=== PATIENT | male | born 1940 | race Hispanic/Latino ===

== ENCOUNTER 2016-11-05 10:07 | Emergency (ER) | payer MEDICARE ==
[2016-11-05] MEDS ORDERED: HYDROcodone/Acetaminophen 10/325 mg Tablet ONE (10:49)
[2016-11-05] MEDS ORDERED: Diazepam 5 MG TAB ONE (10:49)
[2016-11-05] MEDS ORDERED: Gabapentin 100 MG CAP ONE (10:50)
[2016-11-05] MEDS ORDERED: Dexamethasone 4 mg/ml Vial ONE (10:50)
--- NOTE | 2016-11-05 11:02 | ERRECORD ---
[facility] EMERGENCY RECORD HPI BACK (10:47 ABUS) CHIEF COMPLAINT: Denies deformity, Denies injury, Denies numbness, Patient presents for evaluation of pain, to the right lower back. HISTORIAN: History provided by patient, History provided by patient's spouse, 76 yr old M with PMH of HTN, DM, disk herniation, chronic LBP, and BPH who comes in with acute on chronic LBP with intermittent muscle spasms abd worsening pain after working on a frozen pipe outside. Since then he has tried to treat at home. He can ambulate but needs some assistance. Denies any loss of bowel or bladder function, constant numbness, fever. MECHANISM OF INJURY: Work related. LOCATION: Symptoms are localized to the back, sacral region, right lumbar region. QUALITY: Pain is dull in nature, described as aching. SEVERITY: Currently symptoms are moderate. TIME COURSE: Gradual onset of symptoms, 2-3 days. ASSOCIATED WITH: No associated abdominal pain, No associated bladder incontinence, No associated bowel incontinence, No associated dysuria, No associated fever, No associated inability to ambulate, No associated motor weakness, No associated numbness, No associated problems with urination, Associated with sciatica, on the left, Associated with tingling, on the right, intermittent. EXACERBATED BY: Patient's condition exacerbated by movement. RELIEVED BY: Patient's condition relieved by nothing. RISK FACTORS: Risk factors reviewed. ROS (10:50 ABUS) CONSTITUTIONAL: Negative constitutional review of systems, Historian denies chills, denies fever. ENT: Negative ears, nose, throat review of systems, Historian denies rhinorrhea, denies sore throat. CARDIOVASCULAR: Negative cardiovascular review of systems, Historian denies chest pain, denies palpitations. RESPIRATORY: Negative respiratory review of systems, Historian denies cough, denies shortness of breath. GI: Negative gastrointestinal review of systems, Historian denies abdominal pain, denies constipation, denies diarrhea, denies nausea, denies vomiting. MUSCULOSKELETAL: Historian reports arthralgias, reports back pain, denies deformity, denies fall, reports injury, denies joint stiffness, denies joint swelling, denies neck pain, reports spasms. SKIN: Negative skin review of systems, Historian denies rash, denies skin changes. NEUROLOGIC: Negative neurologic review of systems, Historian denies headache. PAST MEDICAL HISTORY (10:38 SFRE) &a-1R&a+25V*p+0X*[id number]*c202B*c15G*c2P*p-0X&a-25V&a+1R Name: Jovani Sinha : 1940 M76 MedRec: [id number] AcctNum: [id number] Prepared: Rony Nov 05, 2016 11:25 by Interface Page 1 of 5 pMD [facility] EMERGENCY RECORD MEDICAL HISTORY: Flu vaccine up to date, Tetanus immunization up to date, Pneumococcal vaccine up to date, Past medical history includes cardiac history, Notes: LYMPHOMA,, Past medical history includes history of diabetes, Past medical history includes history of hypertension, /Past medical history includes. VERIFIED 06/07/16. no changes 10/12/16. MALE SURGICAL HISTORY: Surgical history of coronary artery bypass graft surgery, one vessel, Surgical history of orthopedic surgery, LEFT ELBOW, Patient has no surgical history, 2 LITERS OF FLUID REMOVED FROM RIGHT ABD-PARACENTESIS JANUARY 24, Patient's surgical history is not relevant to the management of the case. 3 1/2 Liters drained from left abdomen. - 05/31/2013. VERIFIED. 12-12-14.VERIFIED 06/07/16. no changes 10/12/16. PSYCHIATRIC HISTORY: Notes: VERIFIED 06/07/16, No previous psychiatric history. VERIFIED. 10-01-14. SOCIAL HISTORY: Patient drinks socially, Patient denies drug use, Patient currently uses tobacco, smokes cigarettes, daily, Patient smokes 1 pack per day, Patient drinks socially, twice a month, Alcohol history notes: PT ADMITS TO [employer] IN [employer] [facility] [employer], Patient denies drug use, Patient currently uses tobacco, smokes cigarettes, daily, Patient smokes 1 pack per day, Lives at home, with family, Patient drinks socially, every week, Patient currently uses tobacco, Patient currently uses tobacco, Patient smokes cigarettes, Tobacco history notes: socially, Patient drinks socially, Patient denies drug use, , Patient denies drug use. 05.31.2013. PACK DAILY. VERIFIED 12-12-14. KNOWN ALLERGIES 3 HEART MEDS, UNK NAMES (Unconfirmed) No Known Allergies (Unconfirmed) No Known Drug Allergies CURRENT MEDICATIONS metFORMIN: TABLET : Strength - 1,000 mg : ORAL Patient Dose: 1000 mg Oral 2 times a day. (10:42 SFRE) meTOPROLOL tartrate: TABLET : Strength - 25 mg : ORAL Patient Dose: 2 times a day. (10:42 SFRE) Tylenol-Codeine #3: TABLET : Strength - 300 mg-30 mg : ORAL Patient Dose: As Needed. (10:43 SFRE) aspirin: TABLET : Strength - 325 mg : ORAL Patient Dose: 325 mg Oral once a day. (10:46 SFRE) glipiZIDE: TABLET : Strength - 5 mg : ORAL Patient Dose: 5 mg Oral once a day. (10:46 SFRE) lisinopril: TABLET : Strength - 5 mg : ORAL &a-1R&a+25V*p+0X*[id number]*c202B*c15G*c2P*p-0X&a-25V&a+1R Name: Jovani Sinha : 1940 M76 MedRec: [id number] AcctNum: [id number] Prepared: Rony Nov 05, 2016 11:25 by Interface Page 2 of 5 pMD [facility] EMERGENCY RECORD Patient Dose: Unknown. (10:47 SFRE) atorvastatin: TABLET : Strength - 20 mg : ORAL Patient Dose: Unknown. (10:47 SFRE) VITAL SIGNS (10:20 SFRE) VITAL SIGNS: BP: 155/70, Pulse: 81, Resp: 18, Temp: 96.9 (Tympanic), O2 sat: 97 on Room Air, Time: 11/05/2016 10:20. PHYSICAL EXAM CONSTITUTIONAL: Vital Signs Reviewed, Patient afebrile, Pulse normal, Blood pressure normal, Respiratory rate normal, Patient appears non toxic, Patient appears, in moderate pain distress. (10:50 ABUS) HEAD: Head exam normal, no abrasions, No Lacerations, normocephalic. (10:50 ABUS) NECK: Neck exam normal, Neck exam included findings of normal range of motion, Trachea midline, no meningeal signs, no cervical adenopathy, no tenderness. (10:50 ABUS) RESPIRATORY CHEST: Respiratory and chest exam normal, Respiratory exam included findings of no respiratory distress, Breath sounds clear. (10:50 ABUS) CARDIOVASCULAR: Cardiovascular assessment normal, Cardiovascular exam included findings of heart rate regular rate and rhythm, Heart sounds normal. (10:50 ABUS) ABDOMEN MALE: Abdominal exam included findings of abdomen nontender, Bowel sounds normal, no distension, no mass, no pulsatile masses, no peritoneal signs, no rigidity, no guarding, no rebound, Rovsing's sign absent. (10:50 ABUS) BACK: Back exam normal, Back exam included findings of normal inspection, range of motion normal, no tenderness. (10:50 ABUS) UPPER EXTREMITY: Upper extremity exam included findings of inspection normal, no abrasions, no contusions, no deformity, no lacerations, Range of motion normal, Motor strength normal, Sensation intact, Radial pulse normal, no cyanosis, no clubbing, no edema. (10:51 ABUS) LOWER EXTREMITY: Lower extremity exam included findings of inspection normal, no abrasions, no contusions, no deformity, no lacerations, Motor strength, Limited by pain but 4/5 audra, Sensation intact, Pedal pulse normal, no cyanosis, no clubbing, no edema, no palpable cords. (10:51 ABUS) NEURO: Neuro exam normal, Neuro exam findings include patient oriented to person, place and time, Speech normal, Gait normal. (10:50 ABUS) SKIN: Skin exam normal, Skin exam included findings of skin warm, dry, and normal in color, no rash. (10:50 ABUS) MEDICATION ADMINISTRATION SUMMARY Drug Name: dexamethasone sodium phosphate injection, Dose Ordered: 8 &a-1R&a+25V*p+0X*[id number]*c202B*c15G*c2P*p-0X&a-25V&a+1R Name: Jovani Sinha : 1940 M76 MedRec: [id number] AcctNum: [id number] Prepared: Rony Nov 05, 2016 11:25 by Interface Page 3 of 5 pMD [facility] EMERGENCY RECORD mg, Route: Intramuscular, Status: Given, Time: 10:58 11/05/2016, Drug Name: HYDROcodone-acetaminophen, Dose Ordered: 10/325 tab(s), Route: Oral, Status: Given, Time: 10:57 11/05/2016, Drug Name: diazepam oral, Dose Ordered: 5 mg, Route: Oral, Status: Given, Time: 10:57 11/05/2016, Drug Name: gabapentin, Dose Ordered: 100 mg, Route: Oral, Status: Given, Time: 10:57 11/05/2016, Detailed record available in Medication Service section. DOCTOR NOTES (10:52 ABUS) TEXT: 76 yr old M with PMH of HTN, DM, disk herniation, chronic LBP, and BPH who comes in with acute on chronic LBP with intermittent muscle spasms abd worsening pain after working on a frozen pipe outside. No loss of bowel, or bladder or fever. Exam: Appears in pain and some motor exam is limited due to muscle spasm and pain. Otherwise nothing specific. DDX: Muscle strain, Muscle Spasm, Ligamentous Injury, Contusion, Soft Tissue Injury, Arthritis, Degenerative Joint Disease, Spinal Stenosis, Disk Herniation PLAN: Analgesics, Muscle Relaxants. Final Dispo: Home with follow up and return precautions including close monitoring of his glucose which he uses sliding scale insulin to manage. The plan and need for close monitor of glucose was shared with the patient and his (who is driving) who verbalized understanding and agreement with the plan of care. Level of Complexity / Medical Decision Making: Low. PROBLEM LIST No recorded problems DIAGNOSIS (10:41 ABUS) FINAL: PRIMARY: Low back pain, ADDITIONAL: OTHER MUSCLE SPASM. PRESCRIPTION (10:46 ABUS) Valium oral: TABLET : 5 mg : ORAL : Quantity: 1 Unit: tab(s) Route: ORAL Schedule: every 8 hours PRN Dispense: 6 Unit: tab(s) May substitute. Refills: No Refills . NOTES: No Refills. traMADol: TABLET : 50 mg : ORAL : Quantity: 1 Unit: tab(s) Route: ORAL Schedule: every 6 hours PRN Dispense: 10 Unit: tab(s) May substitute. Refills: No Refills . NOTES: ^s=No Refills No Refills. DISPOSITION PATIENT: Disposition Type: Discharge, Disposition: *Discharge Home, Condition: Good. (11:22 ABUS) &a-1R&a+25V*p+0X*u1045C*c202B*c15G*c2P*p-0X&a-25V&a+1R Name: Jovani Sinha : 1940 M76 MedRec: [id number] AcctNum: [id number] Prepared: Rony Nov 05, 2016 11:25 by Interface Page 4 of 5 pMD [facility] EMERGENCY RECORD Patient left the department. (11:25 SFRE) Arshad: KEVIN=MD Slade, Alexey SFRE=JOSE M Soliman, Abida &a-1R&a+25V*p+0X*[id number]*c202B*c15G*c2P*p-0X&a-25V&a+1R Name: Jovani Sinha : 1940 M76 MedRec: [id number] AcctNum: [id number] Prepared: Rony Nov 05, 2016 11:25 by Interface Page 5 of 5 pMD MTDD
--- NOTE | 2016-11-05 11:07 | PICIS ---
[facility] EMERGENCY RECORD TRIAGE (10:20 SFRE) TRIAGE NOTES: LOW BACK PAIN. (10:20 SFRE) PATIENT: NAME: Jovani Sinha, AGE: 76, GENDER: male, : Fri1940, TIME OF GREET: FriNov 05, 2016 10:08, PREFERRED LANGUAGE: Yakut, ETHNICITY: or , FALL RISK: NO, ECODE BILLING MAP: [facility], SSN: [id number], Zip Code: [address], KG WEIGHT: 80.74, PHONE: , , , PERSON ID: [id number], PCP: MD INIGUEZ IMELDA. (10:20 SFRE) COMPLAINT: LOWER BACK PAIN. (10:20 SFRE) ADMISSION: URGENCY: 4 Non Urgent, ADMISSION SOURCE: Home, TRANSPORT: Walk-in, BED: ED -05. (10:20 SFRE) ASSESSMENT: Symptoms began 3 days ago. (10:38 SFRE) PAIN: Patient complains of pain described as, aching, on a scale 0-10 patient rates pain as 8, Location LOW BACK PAIN, MOSTLY TO RIGHT HIP AND LOWN R LEG, Pain is constant, Aggravating factors:, Pain exacerbated by movement, No efforts tried to relieve symptoms. (10:38 SFRE) IMMUNIZATIONS: Flu vaccine up to date, Pneumococcal vaccine up to date. (10:38 SFRE) SIRS SCORING: Heart Rate 55-109 (0), Temp range 96.8-101.1 (0), respiratory rate 12-24 (0), Mental Status altered: no (0). (10:38 SFRE) TRIAGE SCREENING: Patient denies suicidal ideation, Patient denies presence of domestic violence. (10:38 SFRE) PROVIDERS: TRIAGE NURSE: Abida Soliman RN. (10:20 SFRE) VITAL SIGNS: BP 155/70, Pulse 81, Resp 18, Temp 96.9, (Tympanic), O2 Sat 97, on Room Air, Time 11/05/2016 10:20. (10:20 SFRE) PREVIOUS VISIT ALLERGIES: No Known Drug Allergies. (10:20 SFRE) No Known Drug Allergies. (10:38 SFRE) KNOWN ALLERGIES 3 HEART MEDS, UNK NAMES (Unconfirmed) No Known Allergies (Unconfirmed) No Known Drug Allergies CURRENT MEDICATIONS metFORMIN: TABLET : Strength - 1,000 mg : ORAL Patient Dose: 1000 mg Oral 2 times a day. (10:42 SFRE) meTOPROLOL tartrate: TABLET : Strength - 25 mg : ORAL Patient Dose: 2 times a day. (10:42 SFRE) Tylenol-Codeine #3: TABLET : Strength - 300 mg-30 mg : ORAL Patient Dose: As Needed. (10:43 SFRE) aspirin: TABLET : Strength - 325 mg : ORAL Patient Dose: 325 mg Oral once a day. (10:46 SFRE) &a-1R&a+25V*p+0X*j5144N*c202B*c15G*c2P*p-0X&a-25V&a+1R Name: Jovani Sinha : 1940 M76 MedRec: [id number] AcctNum: [id number] Prepared: Rony Nov 05, 2016 11:30 by Interface Page 1 of 7 pMD [facility] EMERGENCY RECORD glipiZIDE: TABLET : Strength - 5 mg : ORAL Patient Dose: 5 mg Oral once a day. (10:46 SFRE) lisinopril: TABLET : Strength - 5 mg : ORAL Patient Dose: Unknown. (10:47 SFRE) atorvastatin: TABLET : Strength - 20 mg : ORAL Patient Dose: Unknown. (10:47 SFRE) VITAL SIGNS (10:20 SFRE) VITAL SIGNS: BP: 155/70, Pulse: 81, Resp: 18, Temp: 96.9 (Tympanic), O2 sat: 97 on Room Air, Time: 11/05/2016 10:20. NURSING ASSESSMENT: BACK (10:25 SFRE) CONSTITUTIONAL: Patient arrives, via hospital wheelchair, History obtained from patient, Patient appears comfortable, Patient cooperative, Patient alert, Oriented to person, place and time, Skin warm, Skin dry, Skin normal in color, Mucous membranes pink, Mucous membranes moist, Patient is well-groomed, Patient complains of BACK PAIN. PAIN: aching pain, sharp pain, shooting pain, to the lower back, Pain radiates, to the right leg, Onset of pain COUPLE DAYS AGO, constant, on a scale 0-10 patient rates pain as 8, Pain exacerbated by, ambulation, Nothing has been tried to alleviate the pain. SAFETY: Side rails up, Cart/Stretcher in lowest position, Family at bedside, Call light within reach, Hospital ID band on. NURSING PROCEDURE: DISCHARGE NOTE (11:16 SFRE) DISCHARGE: Patient discharged to home, in a wheelchair, family driving, accompanied by //partner, Summary of Care printed/ provided, Patient requested and was provided an electronic copy of Discharge Instructions, Discharge instructions given to patient, Simple or moderate discharge teaching performed, by JOSE M ZAMARRIPA, F/U WITH PCP. RX DIRECTED. RETURN TO ED NEEDED FOR NEW/CONCERNING OR WORSENING SYMPTOMS., Prescriptions given and instructions on side effects given, Name of prescription(s) given: TRAMADOL, VALIUM, Above person(s) verbalized understanding of discharge instructions and follow-up care. MEDICATION ADMINISTRATION SUMMARY Drug Name: dexamethasone sodium phosphate injection, Dose Ordered: 8 mg, Route: Intramuscular, Status: Given, Time: 10:58 11/05/2016, Drug Name: HYDROcodone-acetaminophen, Dose Ordered: 10/325 tab(s), Route: Oral, Status: Given, Time: 10:57 11/05/2016, Drug Name: diazepam oral, Dose Ordered: 5 mg, Route: Oral, Status: Given, Time: 10:57 11/05/2016, &a-1R&a+25V*p+0X*[id number]*c202B*c15G*c2P*p-0X&a-25V&a+1R Name: Bharath Jovani A : 1940 M76 MedRec: [id number] AcctNum: [id number] Prepared: FriNov 05, 2016 11:30 by Interface Page 2 of 7 pMD [facility] EMERGENCY RECORD Drug Name: gabapentin, Dose Ordered: 100 mg, Route: Oral, Status: Given, Time: 10:57 11/05/2016, Detailed record available in Medication Service section. MEDICATION SERVICE dexamethasone sodium phosphate injection: Order: dexamethasone sodium phosphate injection (dexamethasone sod phosphate) - Dose: 8 mg : Intramuscular Schedule: Now Ordered by: Alexey June MD Entered by: Alexey June MD lillian Nov 05, 2016 10:37 , Acknowledged by: Abida Soliman RN [facility] Nov 05, 2016 10:38 Documented as given by: Abida Soliman RN [facility] Nov 05, 2016 10:58 Patient, Medication, Dose, Route and Time verified prior to administration. IM medication, Amount given: 8MG, Medication administered to right deltoid, Patient appears Awake and alert- acceptable, Correct patient, time, route, dose and medication confirmed prior to administration, Patient advised of actions and side-effects prior to administration, Allergies confirmed and medications reviewed prior to administration, Patient in position of comfort, Side rails up, Cart in lowest position, Family at bedside. : Follow Up : Response assessment performed, No signs or symptoms of allergic reaction noted. (11:16 SFRE) diazepam oral: Order: diazepam oral (diazepam) - Dose: 5 mg : Oral Schedule: Now Ordered by: Alexey June MD Entered by: Alexey June MD [facility] Nov 05, 2016 10:38 , Acknowledged by: Abida Soliman RN [facility] Nov 05, 2016 10:38 Documented as given by: Abida Soliman RN [facility] Nov 05, 2016 10:57 Patient, Medication, Dose, Route and Time verified prior to administration. Amount given: 5MG, Site: Medication administered P.O., Correct patient, time, route, dose and medication confirmed prior to administration, Patient advised of actions and side-effects prior to administration, Allergies confirmed and medications reviewed prior to administration, Patient in position of comfort, Side rails up, Cart in lowest position, Family at bedside. gabapentin: Order: gabapentin - Dose: 100 mg : Oral Schedule: Now Ordered by: Alexey June MD Entered by: Alexey June MD [facility] Nov 05, 2016 10:38 , Acknowledged by: Abida Soliman RN [facility] Nov 05, 2016 10:39 Documented as given by: Abida Soliman RN [facility] Nov 05, 2016 10:57 Patient, Medication, Dose, Route and Time verified prior to administration. Amount given: 100MG, Site: Medication administered P.O., Correct patient, time, route, dose and medication confirmed prior to administration, Patient advised of actions and side-effects prior to &a-1R&a+25V*p+0X*j2454N*c202B*c15G*c2P*p-0X&a-25V&a+1R Name: Jovani Sinha : 1940 M76 MedRec: [id number] AcctNum: [id number] Prepared: FriNov 05, 2016 11:30 by Interface Page 3 of 7 pMD [facility] EMERGENCY RECORD administration, Allergies confirmed and medications reviewed prior to administration, Patient in position of comfort, Side rails up, Cart in lowest position, Family at bedside. HYDROcodone-acetaminophen: Order: HYDROcodone-acetaminophen (hydrocodone bitartrate/acetaminophen) - Dose: 10/325 tab(s) : Oral Schedule: Now Ordered by: Alexey June MD Entered by: Alexey June MD FriNov 05, 2016 10:37 , Acknowledged by: Abida Soliman RN FriNov 05, 2016 10:38 Documented as given by: Abida Soliman RN FriNov 05, 2016 10:57 Patient, Medication, Dose, Route and Time verified prior to administration. Amount given: 1TAB, Site: Medication administered P.O., Correct patient, time, route, dose and medication confirmed prior to administration, Patient advised of actions and side-effects prior to administration, Allergies confirmed and medications reviewed prior to administration, Patient in position of comfort, Side rails up, Cart in lowest position, Family at bedside. HPI BACK (10:47 ABUS) CHIEF COMPLAINT: Denies deformity, Denies injury, Denies numbness, Patient presents for evaluation of pain, to the right lower back. HISTORIAN: History provided by patient, History provided by patient's spouse, 76 yr old M with PMH of HTN, DM, disk herniation, chronic LBP, and BPH who comes in with acute on chronic LBP with intermittent muscle spasms abd worsening pain after working on a frozen pipe outside. Since then he has tried to treat at home. He can ambulate but needs some assistance. Denies any loss of bowel or bladder function, constant numbness, fever. MECHANISM OF INJURY: Work related. LOCATION: Symptoms are localized to the back, sacral region, right lumbar region. QUALITY: Pain is dull in nature, described as aching. SEVERITY: Currently symptoms are moderate. TIME COURSE: Gradual onset of symptoms, 2-3 days. ASSOCIATED WITH: No associated abdominal pain, No associated bladder incontinence, No associated bowel incontinence, No associated dysuria, No associated fever, No associated inability to ambulate, No associated motor weakness, No associated numbness, No associated problems with urination, Associated with sciatica, on the left, Associated with tingling, on the right, intermittent. EXACERBATED BY: Patient's condition exacerbated by movement. RELIEVED BY: Patient's condition relieved by nothing. RISK FACTORS: Risk factors reviewed. ROS (10:50 ABUS) CONSTITUTIONAL: Negative constitutional review of systems, &a-1R&a+25V*p+0X*a1735V*c202B*c15G*c2P*p-0X&a-25V&a+1R Name: Jovani Sinha : 1940 M76 MedRec: [id number] AcctNum: [id number] Prepared: Rony Nov 05, 2016 11:30 by Interface Page 4 of 7 pMD [facility] EMERGENCY RECORD Historian denies chills, denies fever. ENT: Negative ears, nose, throat review of systems, Historian denies rhinorrhea, denies sore throat. CARDIOVASCULAR: Negative cardiovascular review of systems, Historian denies chest pain, denies palpitations. RESPIRATORY: Negative respiratory review of systems, Historian denies cough, denies shortness of breath. GI: Negative gastrointestinal review of systems, Historian denies abdominal pain, denies constipation, denies diarrhea, denies nausea, denies vomiting. MUSCULOSKELETAL: Historian reports arthralgias, reports back pain, denies deformity, denies fall, reports injury, denies joint stiffness, denies joint swelling, denies neck pain, reports spasms. SKIN: Negative skin review of systems, Historian denies rash, denies skin changes. NEUROLOGIC: Negative neurologic review of systems, Historian denies headache. PAST MEDICAL HISTORY (10:38 SFRE) MEDICAL HISTORY: Flu vaccine up to date, Tetanus immunization up to date, Pneumococcal vaccine up to date, Past medical history includes cardiac history, Notes: LYMPHOMA,, Past medical history includes history of diabetes, Past medical history includes history of hypertension, /Past medical history includes. VERIFIED 06/07/16. no changes 10/12/16. MALE SURGICAL HISTORY: Surgical history of coronary artery bypass graft surgery, one vessel, Surgical history of orthopedic surgery, LEFT ELBOW, Patient has no surgical history, 2 LITERS OF FLUID REMOVED FROM RIGHT ABD-PARACENTESIS JANUARY 24, Patient's surgical history is not relevant to the management of the case. 3 1/2 Liters drained from left abdomen. - 05/31/2013. VERIFIED. 12-12-14.VERIFIED 06/07/16. no changes 10/12/16. PSYCHIATRIC HISTORY: Notes: VERIFIED 06/07/16, No previous psychiatric history. VERIFIED. 10-01-14. SOCIAL HISTORY: Patient drinks socially, Patient denies drug use, Patient currently uses tobacco, smokes cigarettes, daily, Patient smokes 1 pack per day, Patient drinks socially, twice a month, Alcohol history notes: PT ADMITS TO [employer] GR[employer] INTER[employer] IN [facility], Patient denies drug use, Patient currently uses tobacco, smokes cigarettes, daily, Patient smokes 1 pack per day, Lives at home, with family, Patient drinks socially, every week, Patient currently uses tobacco, Patient currently uses tobacco, Patient smokes cigarettes, Tobacco history notes: socially, Patient drinks socially, Patient denies drug use, , Patient denies drug use. 05.31.2013. PACK DAILY. VERIFIED 12-12-14. PHYSICAL EXAM CONSTITUTIONAL: Vital Signs Reviewed, Patient afebrile, Pulse normal, Blood pressure normal, Respiratory rate normal, Patient &a-1R&a+25V*p+0X*v4206Z*c202B*c15G*c2P*p-0X&a-25V&a+1R Name: Jovani Sinha : 1940 M76 MedRec: [id number] AcctNum: [id number] Prepared: Rony Nov 05, 2016 11:30 by Interface Page 5 of 7 pMD [facility] EMERGENCY RECORD appears non toxic, Patient appears, in moderate pain distress. (10:50 ABUS) HEAD: Head exam normal, no abrasions, No Lacerations, normocephalic. (10:50 ABUS) NECK: Neck exam normal, Neck exam included findings of normal range of motion, Trachea midline, no meningeal signs, no cervical adenopathy, no tenderness. (10:50 ABUS) RESPIRATORY CHEST: Respiratory and chest exam normal, Respiratory exam included findings of no respiratory distress, Breath sounds clear. (10:50 ABUS) CARDIOVASCULAR: Cardiovascular assessment normal, Cardiovascular exam included findings of heart rate regular rate and rhythm, Heart sounds normal. (10:50 ABUS) ABDOMEN MALE: Abdominal exam included findings of abdomen nontender, Bowel sounds normal, no distension, no mass, no pulsatile masses, no peritoneal signs, no rigidity, no guarding, no rebound, Rovsing's sign absent. (10:50 ABUS) BACK: Back exam normal, Back exam included findings of normal inspection, range of motion normal, no tenderness. (10:50 ABUS) UPPER EXTREMITY: Upper extremity exam included findings of inspection normal, no abrasions, no contusions, no deformity, no lacerations, Range of motion normal, Motor strength normal, Sensation intact, Radial pulse normal, no cyanosis, no clubbing, no edema. (10:51 ABUS) LOWER EXTREMITY: Lower extremity exam included findings of inspection normal, no abrasions, no contusions, no deformity, no lacerations, Motor strength, Limited by pain but 4/5 audra, Sensation intact, Pedal pulse normal, no cyanosis, no clubbing, no edema, no palpable cords. (10:51 ABUS) NEURO: Neuro exam normal, Neuro exam findings include patient oriented to person, place and time, Speech normal, Gait normal. (10:50 ABUS) SKIN: Skin exam normal, Skin exam included findings of skin warm, dry, and normal in color, no rash. (10:50 ABUS) EVENTS TRANSFER: Triage to Emergency Main ED -05. (FriNov 05, 2016 10:20 SFRE) Removed from Emergency Main ED -05. (11:25 SFRE) DOCTOR NOTES (10:52 ABUS) TEXT: 76 yr old M with PMH of HTN, DM, disk herniation, chronic LBP, and BPH who comes in with acute on chronic LBP with intermittent muscle spasms abd worsening pain after working on a frozen pipe outside. No loss of bowel, or bladder or fever. Exam: Appears in pain and some motor exam is limited due to muscle spasm and pain. Otherwise nothing specific. DDX: Muscle strain, Muscle Spasm, Ligamentous Injury, Contusion, Soft Tissue Injury, Arthritis, Degenerative Joint Disease, Spinal Stenosis, Disk Herniation &a-1R&a+25V*p+0X*o8851U*c202B*c15G*c2P*p-0X&a-25V&a+1R Name: Jovani Sinha : 1940 M76 MedRec: [id number] AcctNum: [id number] Prepared: Rony Nov 05, 2016 11:30 by Interface Page 6 of 7 pMD [facility] EMERGENCY RECORD PLAN: Analgesics, Muscle Relaxants. Final Dispo: Home with follow up and return precautions including close monitoring of his glucose which he uses sliding scale insulin to manage. The plan and need for close monitor of glucose was shared with the patient and his (who is driving) who verbalized understanding and agreement with the plan of care. Level of Complexity / Medical Decision Making: Low. PROBLEM LIST No recorded problems DIAGNOSIS (10:41 ABUS) FINAL: PRIMARY: Low back pain, ADDITIONAL: OTHER MUSCLE SPASM. DISPOSITION PATIENT: Disposition Type: Discharge, Disposition: *Discharge Home, Condition: Good. (11:22 ABUS) Patient left the department. (11:25 SFRE) INSTRUCTION (10:45 ABUS) DISCHARGE: LOW BACK PAIN GENERAL, MUSCLE STRAIN BACK. FOLLOWUP: MD HIRA, [place], [facility], [address] [place] [id number], [phone], Follow up with Primary Care Physician as needed. PRESCRIPTION (10:46 ABUS) Valium oral: TABLET : 5 mg : ORAL : Quantity: 1 Unit: tab(s) Route: ORAL Schedule: every 8 hours PRN Dispense: 6 Unit: tab(s) May substitute. Refills: No Refills . NOTES: No Refills. traMADol: TABLET : 50 mg : ORAL : Quantity: 1 Unit: tab(s) Route: ORAL Schedule: every 6 hours PRN Dispense: 10 Unit: tab(s) May substitute. Refills: No Refills . NOTES: ^s=No Refills No Refills. IMAGING (11:15 SFRE) *DISCHARGE INSTRUCTIONS RECEIPT: Image captured from scanner. *SUPPLY CHARGE SHEET: Image captured from scanner. ADMIN DIGITAL SIGNATURE: MD Slade, Alexey. (10:55 ABUS) SolimanJOSE M Stacey. (11:16 GERRY) MD June Anthony. (11:22 KEVIN) Arshad: AB=MD June Anthony SFRE=JOSE M Soliman, Abida &a-1R&a+25V*p+0X*i4491J*c202B*c15G*c2P*p-0X&a-25V&a+1R Name: Jovani Sinha : 1940 M76 MedRec: [id number] AcctNum: [id number] Prepared: Rony Nov 05, 2016 11:30 by Interface Page 7 of 7 pMD [facility]TDD
== END 2016-11-05 11:16 | disposition home or self-care (01) ==
LOC: MADERS 10:07
DX: M62.830 Muscle spasm of back (principal); E11.9 Type 2 diabetes mellitus without complications; I10 Essential (primary) hypertension; F17.210 Nicotine dependence, cigarettes, uncomplicated
CPT/HCPCS: 96372; J1100

== ENCOUNTER 2017-01-28 09:58 | Outpatient (CLI) | payer MEDICARE ==
[2017-01-28 10:27] LABS: Hemoglobin A1c 7.1 % (4.0-6.0)
[2017-01-28 10:53] LABS: ALT (SGPT) 35 U/L (0-55); AST (SGOT) 21 U/L (5-34); Albumin 4.4 g/dL (3.4-4.8); Alkaline Phosphatase 81 U/L (40-150); Anion Gap 16 mmol/L (10-20); BUN (Urea Nitrogen) 18 mg/dL (8.4-25.7); Bilirubin, Total 0.3 mg/dL (0.2-1.2); Calc. Creatinine Clearance 0 mL/min (70-130); Calcium 9.6 mg/dL (7.8-10.44); Carbon Dioxide 24 mmol/L (23-31); Cardiac Risk 4.6 (Less than 4.5); Chloride 103 mmol/L (98-107); Cholesterol 205 mg/dL (< 200 Desired); Estimated GFR-MDRD 86; Globulin 2.3 g/dL (2.4-3.5); Glucose 178 mg/dL (83-110); HDL Cholesterol 45 mg/dL (>60 Neg Risk); LDL Cholesterol, Calculated 132 mg/dL; Potassium 4.5 mmol/L (3.5-5.1); Protein, Total 6.7 g/dL (5.8-8.1); Sodium 138 mmol/L (136-145); Triglycerides 140 mg/dL (Less than 150)
[2017-01-28 11:06] LABS: #Basophils 0.1 thou/uL (0.0-0.2); #Eosinphils 0.2 thou/uL (0.0-0.7); #Lymphocytes 1.1 thou/uL (1.20-3.40); #Monocytes 0.6 thou/uL (0.11-0.59); #Neutrophils 3.7 thou/uL (1.40-6.50); %Eosinophils 3.4 % (0.0-10.0); %Lymphocytes 19.5 % (21.0-51.0); %Monocytes 10.4 % (0.0-10.0); %Neutrophils 65.8 % (42.0-75.0); Hemoglobin 13.6 g/dL (14.0-18.0); Mean Corpuscular HGB CONC 33.5 g/dL (32.0-36.0); Mean Corpuscular Hemoglobin 31.6 pg (27.0-31.0); Mean Corpuscular Volume 94.4 fl (80.0-94.0); Platelet Count 217 thou/uL (130-400); Red Blood Cell (RBC) Count 4.29 mill/uL (4.70-6.10); White Blood Cell (WBC) Count 5.5 thou/uL (4.8-10.8)
[2017-01-28 11:09] LABS: Free T4 (Free Thyroxine) 0.89 ng/dL (0.70-1.48); Thyroid Stimulating Hormone 1.4905 uIU/mL (0.35-4.94)
[2017-01-28 17:06] LABS: Iron 56 ug/dL (65-175); Iron Binding Capacity, Total 360 mcg/dL (261-462)
[2017-01-28 17:23] LABS: Creatinine, Urine 53.53 mg/dL (63-166); Ferritin 71.49 ng/mL (22-322); Microalbumin Urine 1.1 mg/dL (0.5-50.0); Microalbumin/Creat Ratio 20.5 mg/g (Less than 30)
== END 2017-01-28 09:59 | disposition home or self-care (01) ==
LOC: MADLABBHPM 09:58
PROVIDERS: ATTEND Family Medicine
DX: E78.2 Mixed hyperlipidemia (principal); E11.9 Type 2 diabetes mellitus without complications; D50.9 Iron deficiency anemia, unspecified
CPT/HCPCS: 36415; 80053; 80061; 82043; 82728; 83036; 83540; 83550; 84439; 84443; 85025

== ENCOUNTER 2017-03-11 10:28 | Emergency (ER) | payer MEDICARE ==
[~2017-03-11 10:28] MED LIST: Sterile Water Irrigation 250 ML BOT ONE
[2017-03-11] MEDS ORDERED: Lidocaine 1% 20 ML MDV ONE (10:41)
== END 2017-03-11 11:00 | disposition home or self-care (01) ==
LOC: MADERS 10:28
DX: L02.212 Cutaneous abscess of back [any part, except buttock and flank] (principal); E11.9 Type 2 diabetes mellitus without complications; I10 Essential (primary) hypertension; F17.210 Nicotine dependence, cigarettes, uncomplicated
CPT/HCPCS: 10060; J2001

== ENCOUNTER 2017-03-13 10:44 | Emergency (ER) | payer MEDICARE ==
[2017-03-13] MEDS ORDERED: Clindamycin 150 MG CAP ONE (11:28)
== END 2017-03-13 11:25 | disposition home or self-care (01) ==
LOC: MADERS 10:44
DX: Z48.01 Encounter for change or removal of surgical wound dressing (principal); E11.9 Type 2 diabetes mellitus without complications; I10 Essential (primary) hypertension; F17.210 Nicotine dependence, cigarettes, uncomplicated; Z79.84 Long term (current) use of oral hypoglycemic drugs; Z79.82 Long term (current) use of aspirin; Z79.899 Other long term (current) drug therapy
CPT/HCPCS: 99282

== ENCOUNTER 2017-03-17 13:46 | Emergency (ER) | payer MEDICARE ==
[~2017-03-17 13:46] MED LIST changes: +Sodium Chloride Irrig Solution 250 ML BOT ONE; -Sterile Water Irrigation 250 ML BOT ONE
[2017-03-17] MEDS ORDERED: Triple Antibiotic Oint 1 GM Packet ONE (14:04)
== END 2017-03-17 14:15 | disposition home or self-care (01) ==
LOC: MADERS 13:46
DX: L02.212 Cutaneous abscess of back [any part, except buttock and flank] (principal); I10 Essential (primary) hypertension; E11.9 Type 2 diabetes mellitus without complications; F17.210 Nicotine dependence, cigarettes, uncomplicated; Z79.82 Long term (current) use of aspirin; Z79.84 Long term (current) use of oral hypoglycemic drugs; Z79.2 Long term (current) use of antibiotics; Z79.899 Other long term (current) drug therapy
CPT/HCPCS: 99282

== ENCOUNTER 2017-04-20 20:17 | Emergency (ER) | payer MEDICARE ==
[2017-04-20] MEDS ORDERED: Ketorolac Tromethamine 60 MG/2 ML VIAL ONE (20:38)
== END 2017-04-20 21:07 | disposition home or self-care (01) ==
LOC: MADERS 20:17
DX: M25.512 Pain in left shoulder (principal); F10.129 Alcohol abuse with intoxication, unspecified; I25.10 Atherosclerotic heart disease of native coronary artery without angina pectoris; E11.9 Type 2 diabetes mellitus without complications; I10 Essential (primary) hypertension; F17.210 Nicotine dependence, cigarettes, uncomplicated; Z79.84 Long term (current) use of oral hypoglycemic drugs; Z79.82 Long term (current) use of aspirin; Z79.899 Other long term (current) drug therapy; Z98.890 Other specified postprocedural states
CPT/HCPCS: 96372; J1885

== ENCOUNTER 2017-05-05 08:47 | Outpatient (CLI) | payer MEDICARE ==
[2017-05-05 10:00] LABS: Hemoglobin A1c 7.5 % (4.0-6.0)
[2017-05-05 10:02] LABS: ALT (SGPT) 35 U/L (8-55); AST (SGOT) 21 U/L (5-34); Albumin 4.2 g/dL (3.4-4.8); Alkaline Phosphatase 87 U/L (40-150); Anion Gap 16 mmol/L (10-20); BUN (Urea Nitrogen) 28 mg/dL (8.4-25.7); Bilirubin, Total 0.3 mg/dL (0.2-1.2); Calc. Creatinine Clearance 0 mL/min (70-130); Calcium 9.3 mg/dL (7.8-10.44); Carbon Dioxide 22 mmol/L (23-31); Chloride 102 mmol/L (98-107); Estimated GFR-MDRD 86; Globulin 3.5 g/dL (2.4-3.5); Glucose 195 mg/dL (83-110); Potassium 4.5 mmol/L (3.5-5.1); Protein, Total 7.7 g/dL (5.8-8.1); Sodium 135 mmol/L (136-145)
[2017-05-05 16:53] LABS: Iron 60 ug/dL (65-175)
[2017-05-05 17:10] LABS: Creatinine, Urine 68.46 mg/dL (63-166); Microalbumin Urine 1.5 mg/dL (0.5-50.0); Microalbumin/Creat Ratio 21.9 mg/g (Less than 30)
== END 2017-05-05 08:48 ==
LOC: MADLABBHPM 08:47
PROVIDERS: ATTEND Family Medicine
DX: E11.9 Type 2 diabetes mellitus without complications (principal); R80.9 Proteinuria, unspecified; D50.9 Iron deficiency anemia, unspecified
CPT/HCPCS: 36415; 80053; 82043; 82728; 83036; 83540

== ENCOUNTER 2017-06-07 02:40 | Emergency (ER) | payer MEDICARE ==
[2017-06-07 03:42] LABS: Bilirubin Negative (Negative); Blood, Urine Negative (Negative); Clarity Turbid (Clear); Glucose, Urine (Dipstick) Negative (Negative); Leukocyte Large (Negative); Nitrite Negative (Negative); Protein, Urine (Dipstick) Negative (Neg-Trace); Urobilinogen 0.2 mg/dL (0.2-1.0)
[2017-06-07 03:43] LABS: Bacteria/HPF 4+ HPF (None Seen); Renal Epithelial 0-3 HPF (0-3); Squamous Epithelial 0-3 HPF (0-3); Transitional Epithelial 0-3 HPF (0-3)
[2017-06-07] MEDS ORDERED: cefTRIAXone\\ROCEPHIN 1 GM VIAL ONE (03:58)
[2017-06-07] MEDS ORDERED: Lidocaine 2% Jelly 5 ML TUBE ONE (04:12)
[2017-06-07] MEDS ORDERED: Nitrofurantoin Monohyd/M-Cryst 100 MG CAP ONE (04:47)
[2017-06-07] MEDS ORDERED: Lidocaine 1% 20 ML MDV ONE (08:45)
== END 2017-06-07 05:10 | disposition home or self-care (01) ==
LOC: MADERS 02:40
DX: N12 Tubulo-interstitial nephritis, not specified as acute or chronic (principal); N13.9 Obstructive and reflux uropathy, unspecified; I25.10 Atherosclerotic heart disease of native coronary artery without angina pectoris; E11.9 Type 2 diabetes mellitus without complications; I10 Essential (primary) hypertension; F17.210 Nicotine dependence, cigarettes, uncomplicated; Z79.899 Other long term (current) drug therapy; Z79.84 Long term (current) use of oral hypoglycemic drugs; Z79.82 Long term (current) use of aspirin
CPT/HCPCS: 51702; 81003; 81015; 87086; 96372; J0696; J2001

== ENCOUNTER 2017-06-12 08:41 | Emergency (ER) | payer MEDICARE ==
[2017-06-12 10:11] LABS: Bilirubin Negative (Negative); Blood, Urine Moderate (Negative); Clarity Hazy (Clear); Glucose, Urine (Dipstick) 500 mg/dL (Negative); Leukocyte Negative (Negative); Nitrite Negative (Negative); Protein, Urine (Dipstick) 30 mg/dL (Neg-Trace); Specific Gravity, Urine 1.015 (1.005-1.030); Urobilinogen 0.2 mg/dL (0.2-1.0); pH, Urine 6.5 (5.0-9.0)
[2017-06-12 10:16] LABS: Bacteria/HPF Rare-Few HPF (None Seen); Squamous Epithelial 0-3 HPF (0-3); WBC/HPF 0-3 HPF (0-3)
== END 2017-06-12 10:55 | disposition home or self-care (01) ==
LOC: MADERS 08:41
DX: R33.9 Retention of urine, unspecified (principal); I25.10 Atherosclerotic heart disease of native coronary artery without angina pectoris; E11.9 Type 2 diabetes mellitus without complications; I10 Essential (primary) hypertension; F17.210 Nicotine dependence, cigarettes, uncomplicated
CPT/HCPCS: 81001; 87086; 99283

== ENCOUNTER 2017-08-05 12:21 | Emergency (ER) | payer MEDICARE ==
[2017-08-05 13:02] LABS: #Eosinphils 0.1 thou/uL (0.0-0.7); #Lymphocytes 1.2 thou/uL (1.20-3.40); #Monocytes 0.8 thou/uL (0.11-0.59); #Neutrophils 5.9 thou/uL (1.40-6.50); %Basophils 0.5 % (0.0-1.0); %Eosinophils 1.3 % (0.0-10.0); %Lymphocytes 14.7 % (21.0-51.0); %Monocytes 9.6 % (0.0-10.0); %Neutrophils 73.9 % (42.0-75.0); Hemoglobin 12.5 g/dL (14.0-18.0); Mean Corpuscular HGB CONC 33.9 g/dL (32.0-36.0); Mean Corpuscular Hemoglobin 31.5 pg (27.0-31.0); Mean Corpuscular Volume 92.9 fl (80.0-94.0); Platelet Count 250 thou/uL (130-400); RBC Distribution Width 11.9 % (11.5-14.5); Red Blood Cell (RBC) Count 3.97 mill/uL (4.70-6.10); White Blood Cell (WBC) Count 7.9 thou/uL (4.8-10.8)
[2017-08-05 13:12] LABS: Anion Gap 16 mmol/L (10-20); BUN (Urea Nitrogen) 18 mg/dL (8.4-25.7); Calc. Creatinine Clearance 0 mL/min (70-130); Calcium 9.6 mg/dL (7.8-10.44); Carbon Dioxide 23 mmol/L (23-31); Chloride 100 mmol/L (98-107); Estimated GFR-MDRD 86; Glucose 237 mg/dL (83-110); Magnesium 2.1 mg/dL (1.6-2.6); Sodium 134 mmol/L (136-145)
== END 2017-08-05 14:20 | disposition home or self-care (01) ==
LOC: MADERS 12:21
DX: E11.65 Type 2 diabetes mellitus with hyperglycemia (principal); I25.10 Atherosclerotic heart disease of native coronary artery without angina pectoris; I10 Essential (primary) hypertension; F17.210 Nicotine dependence, cigarettes, uncomplicated; Z79.84 Long term (current) use of oral hypoglycemic drugs; Z79.899 Other long term (current) drug therapy; Z79.82 Long term (current) use of aspirin
CPT/HCPCS: 36416; 80048; 83735; 84443; 85025; 99284; 36415-59

== ENCOUNTER 2017-10-08 10:48 | Outpatient (CLI) | payer MEDICARE ==
[2017-10-08 11:56] LABS: Anion Gap 15 mmol/L (10-20); BUN (Urea Nitrogen) 22 mg/dL (8.4-25.7); Calc. Creatinine Clearance 0 mL/min (70-130); Calcium 9.6 mg/dL (7.8-10.44); Carbon Dioxide 25 mmol/L (23-31); Chloride 101 mmol/L (98-107); Estimated GFR-MDRD 73; Glucose 223 mg/dL (83-110); Potassium 4.8 mmol/L (3.5-5.1); Sodium 136 mmol/L (136-145)
== END 2017-10-08 10:49 | disposition home or self-care (01) ==
LOC: MADLABBHPM 10:48
PROVIDERS: ATTEND Family Medicine
DX: E78.5 Hyperlipidemia, unspecified (principal)
CPT/HCPCS: 36415; 80048

== ENCOUNTER 2018-04-18 12:18 | Observation (INO) | payer MEDICARE ==
[2018-04-18 13:38] LABS: ALT (SGPT) 14 U/L (8-55); AST (SGOT) 12 U/L (5-34); Albumin 3.7 g/dL (3.4-4.8); Alkaline Phosphatase 108 U/L (40-150); Anion Gap 17 mmol/L (10-20); BUN (Urea Nitrogen) 29 mg/dL (8.4-25.7); Bilirubin, Total 0.2 mg/dL (0.2-1.2); Calc. Creatinine Clearance 0 mL/min (70-130); Carbon Dioxide 22 mmol/L (23-31); Chloride 107 mmol/L (98-107); Estimated GFR-MDRD 57; Globulin 2.3 g/dL (2.4-3.5); Glucose 206 mg/dL (83-110); Potassium 4.5 mmol/L (3.5-5.1); Sodium 141 mmol/L (136-145)
[2018-04-18 13:40] LABS: #Eosinphils 0.1 thou/uL (0.0-0.7); #Lymphocytes 0.9 thou/uL (1.20-3.40); #Monocytes 0.6 thou/uL (0.11-0.59); #Neutrophils 5.1 thou/uL (1.40-6.50); %Basophils 0.6 % (0.0-1.0); %Eosinophils 1.6 % (0.0-10.0); %Lymphocytes 13.5 % (21.0-51.0); %Monocytes 8.8 % (0.0-10.0); %Neutrophils 75.5 % (42.0-75.0); Mean Corpuscular HGB CONC 32.3 g/dL (32.0-36.0); Mean Corpuscular Hemoglobin 31.4 pg (27.0-31.0); Mean Corpuscular Volume 97.2 fL (78.0-98.0); Mean Platelet Volume 6.2 fL (7.4-10.4); Platelet Count 293 thou/uL (130-400); RBC Distribution Width 15.1 % (11.5-14.5); Red Blood Cell (RBC) Count 1.82 mill/uL (4.70-6.10); White Blood Cell (WBC) Count 6.6 thou/uL (4.8-10.8)
[2018-04-18 13:43] LABS: Hemoglobin 5.8 g/dL (14.0-18.0)
[2018-04-18] MEDS ORDERED: TETANUS AND DIPHTHERIA TOX/PF 0.5 ML DISP.SYRIN ONE (14:02)
[2018-04-18 14:32] VITALS: BMI 24.3
[2018-04-18] MEDS ORDERED: Triple Antibiotic Oint 1 GM Packet ONE (14:33)
--- NOTE | 2018-04-18 14:34 | RAD ---
THREE VIEWS OF THE RIGHT GREAT TOE: COMPARISON: None. HISTORY: Right great toe injury with pain. FINDINGS: Three views of the right great toe show no evidence of acute fracture or dislocation. There is joint space narrowing in the interphalangeal joint of the toe and in the metatarsophalangeal joint consist ent with osteoarthritis. IMPRESSION: Moderate right toe degenerative change without acute osseous abnormality. POS: [facility]
[2018-04-18] MEDS ORDERED: Acetaminophen 325 MG TAB PO PRN (15:29)
[2018-04-18] MEDS ORDERED: Ondansetron HCl/PF 4 MG/2 ML Vial SLOW IVP PRN (15:29)
[2018-04-18] MEDS ORDERED: Ondansetron ODT 4 MG TAB PO PRN (15:29)
[2018-04-18] MEDS ORDERED: Acetaminophen 650 MG Suppository PR PRN (15:29)
[2018-04-18] MEDS ORDERED: Bisacodyl 10 MG SUPP PR PRN (15:29)
[2018-04-18] MEDS ORDERED: Bisacodyl 5 MG TAB PO PRN (15:29)
[2018-04-18] MEDS ORDERED: Dextrose 5% in Water 1,000 ML IV PRN (17:27)
[2018-04-18] MEDS ORDERED: Dextrose 50% Abboject 50 ML SYRINGE SLOW IVP PRN (17:27)
[2018-04-18] MEDS ORDERED: HumaLOG 300 UNITS/3 ML VIAL SC PRN (17:27)
[2018-04-18] MEDS ORDERED: diphenhydrAMINE 25 MG CAP PO PRN (17:36)
[2018-04-18] MEDS ORDERED: Furosemide 20 MG TAB PO SCH (17:45)
[2018-04-18] MEDS: Ferrous Sulfate 325 MG TAB PO SCH (20:54)
[2018-04-18] MEDS: Docusate 100 MG CAP PO SCH (20:54)
[2018-04-18] MEDS: Famotidine 20 MG TAB PO SCH (20:54)
[2018-04-18] MEDS: Metoprolol Tartrate 25 MG TAB PO SCH (20:55)
[2018-04-18] MEDS: metFORMIN 500 MG TAB PO SCH (20:55)
[2018-04-18] MEDS ORDERED: Atorvastatin Calcium 10 MG TAB PO SCH (21:00)
[2018-04-19 01:35] LABS: Hemoglobin 7.9 g/dL (14.0-18.0); Platelet Count 255 thou/uL (130-400)
--- NOTE | 2018-04-19 02:33 | HP ---
DATE OF ADMISSION: 04/18/2018 REASON FOR ADMISSION: Blood transfusion for severe anemia. HISTORY OF PRESENT ILLNESS: Mr. Sinha is an 78-year-old male with significant history of longstanding diabetes, chronic anemia, with iron deficiency, history of lymphoma, in remission under the care of Dr. Contreras economic research analyst/oncologist in [place]. The patient reported to [facility] today for evaluation of injury to the right foot. The patient reports that yesterday he was walking barefoot in his home and scraped the right great toe on the carpet tract, did not feel it, but saw about a cup of blood in the floor. He noted some swelling in the right angle and leg today, although he reports that he has a history of intermittent leg swelling on and off. He is currently not on any diuretics. No other complaints reported. Upon further evaluation in the ER, the patient was noted to have a small skin laceration that is covered with dried blood blister in the right great toe. Otherwise, no other significant findings except for mild leg edema on the right lower extremity and trace edema around the ankle only, which is negligible. On further evaluation in the ER, laboratory showed hemoglobin of 5.8, RBC of 1.82, hematocrit 17.9, platelets of 293 with WBC of 6.6. BUN 29, creatinine 1.23, glucose of 206. Electrolytes are within normal limits. X-ray of the right great toe showed moderate right toe degenerative change without acute osseous abnormality. The patient was notified that the right toe injury is minimal and negligible and the swelling is not related to the injury, but his hemoglobin was severely low that warrants blood transfusion. The patient reports that he has history of intermittent blood transfusion in the distant and recent past, but not lately due to the same reason. He denies rectal bleeding, black or tarry stools, hematemesis, hematochezia, or other signs of occult bleeding. He admits though that lately he has been generally weak lately, fatigues easily and does not feel as strong as he was from baseline. Otherwise, no other signs and symptoms reported. The patient was subsequently admitted for observation to receive blood transfusion. When evaluated, no other issues reported. Daughter was in the room who contributes to the history. PAST MEDICAL HISTORY: Diabetes, history of urinary retention, large B cell lymphoma, chronic anemia, history of blood transfusions in the past, CAD, fracture of the right rib, hypertension, dyslipidemia, GERD, iron deficiency anemia, BPH, chronic left shoulder pain and rib pain. PAST SURGICAL HISTORY: Status post coronary artery bypass surgery 1 vessel, positive orthopedic surgery of the left elbow, paracentesis in 01/24/2018 with 2 liters of fluids removed from the right abdomen and 3.5 liters drained from his left abdomen, heart valve replaced in 10/12/2016. SOCIAL HISTORY: History of alcohol use in the past. The patient smokes about half pack per day despite of medical recommendations. Drinks alcohol occasionally at present. Denies ETOH use. ALLERGIES: NKDA. CURRENT MEDICATIONS: Metformin 1000 mg b.i.d., metoprolol 25 mg b.i.d., aspirin 325 mg q. day, glipizide 5 mg q. day, atorvastatin 20 mg p.o. at bedtime , Flomax 0.4 mg q. day, mirtazapine 30 mg q. day, finasteride 5 mg p.o. q. day, famotidine 20 mg p.o. b.i.d. REVIEW OF SYSTEMS: General: Reports fatigue, general weakness. No fever, no chills. HEENT: No cold symptoms. No acute visual changes or hearing changes. Respiratory: No shortness of breath, cough, sputum production, wheezing, pain with breathing. Cardiac: No chest pain, paroxysmal nocturnal dyspnea, dyspnea on exertion. Reports intermittent leg swelling on and off. Gastrointestinal: No nausea, vomiting, abdominal pain, hematemesis, hematochezia, or rectal bleeding, black or tarry stools or diarrhea and constipation. Genitourinary: No dysuria, hematuria, frequency, urgency or gross hematuria. Musculoskeletal: Denies joint pain, joint swelling, or myalgia. Neurological: No focal numbness, focal weakness, syncope. Psychiatric: Reports depression, anxiety, and insomnia. No hallucinations. No suicidal thoughts or ideations. PHYSICAL EXAMINATION: VITAL SIGNS: Blood pressure 138/60, temperature 98.1, pulse ox 96%, pulse 71, weight 170 pounds, height 5 feet 10 inches. GENERAL: The patient is awake, alert, oriented x3. Pale looking, generally weak looking, comfortably resting in bed, not in acute distress. HEENT: Normocephalic, atraumatic. Pale conjunctivae. No scleral injection. Nonicteric sclerae. Oral mucosa is moist. No oral lesions. Tongue in the midline. No tremors. NECK: Supple. No LAD. Full range of motion, no JVD, no bruit. CHEST: Normal excursion, clear to auscultation bilaterally. HEART: RRR. Normal S1 and S2. ABDOMEN: Flat, soft, normoactive bowel sounds, nondistended, nontender, no rebound, no guarding, negative CVA tenderness bilaterally. EXTREMITIES: Trace bipedal edema. No joint swelling, no joint effusion, no erythema. SKIN: Skin is pale. No rashes, no lesions, no jaundice. NEUROLOGIC: Nonfocal. DTRs 2+. Grossly normal cranial nerves. PSYCHIATRIC: Appears calm with appropriate demeanor and affect. LABORATORY DATA: WBC is 6.6, hemoglobin 5.8, hematocrit 17.9, platelets 293. Chemistry: Sodium 141, potassium 4.5, chloride 107, BUN 29, creatinine 1.23, estimated GFR 57, current glucose is 151 by Accu-Chek. Calcium 9. Liver functions within normal limits. Albumin 3.7. ASSESSMENT: 1. Acute severe anemia, unspecified etiology. 2. Iron deficiency, chronic 3. History of Lymphoma, in remission . 4. Right great toe skin laceration.No signs of infection. 5. 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 6. Diabetes, type 2. 7. Hypertension. 8. Benign prostatic hypertrophy. 9. Dyslipidemia. 10. Coronary artery disease, status post coronary artery bypass graft. PLAN: 1. The patient is admitted for 24-hour observation. We will start blood transfusions of 2 units packed RBC as soon as the blood is available. Repeat hemoglobin and hematocrit 1 hour after the last pack of blood transfusion. If hemoglobin remains less than 8, we will add another pack of RBC transfusion. Repeat H&H in the morning. Tylenol and Benadryl p.r.n.. Lasix 20 mg p.o. in between first and second unit. 2. Continue close monitoring of vitals per transfusion protocol. 3. To report any adverse reactions, intolerance or acute changes in vital signs as soon as possible. If target H&H is reach, the patient may possibly discontinue in the morning if no other complications. Continue home medications as per list. Accu-Chek a.c. CODE STATUS: The patient reports FULL CODE. DISPOSITION: Home once patient's hemoglobin/hematocrit goal is reached. MTDD
[2018-04-19] MEDS: metFORMIN 500 MG TAB PO SCH (08:54)
[2018-04-19] MEDS: Metoprolol Tartrate 25 MG TAB PO SCH (08:54)
[2018-04-19] MEDS: Docusate 100 MG CAP PO SCH (08:54)
[2018-04-19] MEDS: Ferrous Sulfate 325 MG TAB PO SCH (08:54)
[2018-04-19] MEDS: Famotidine 20 MG TAB PO SCH (08:54)
[2018-04-19 08:58] LABS: Anion Gap 16 mmol/L (10-20); BUN (Urea Nitrogen) 31 mg/dL (8.4-25.7); Calc. Creatinine Clearance 51 mL/min (70-130); Calcium 9.2 mg/dL (7.8-10.44); Carbon Dioxide 22 mmol/L (23-31); Chloride 108 mmol/L (98-107); Estimated GFR-MDRD 55; Glucose 225 mg/dL (83-110); Potassium 4.9 mmol/L (3.5-5.1); Sodium 141 mmol/L (136-145)
[2018-04-19] MEDS ORDERED: Multivitamin W/ Minerals 1 TAB PO SCH (09:00)
[2018-04-19] MEDS ORDERED: Finasteride 5 MG TAB PO SCH (09:00)
[2018-04-19] MEDS ORDERED: Mirtazapine 15 MG TAB PO SCH (09:00)
[2018-04-19] MEDS ORDERED: Tamsulosin HCl 0.4 MG CAP PO SCH (09:00)
[2018-04-19 09:02] LABS: #Eosinphils 0.2 thou/uL (0.0-0.7); #Monocytes 0.8 thou/uL (0.11-0.59); #Neutrophils 6.2 thou/uL (1.40-6.50); %Basophils 0.5 % (0.0-1.0); %Eosinophils 2.4 % (0.0-10.0); %Lymphocytes 11.9 % (21.0-51.0); %Monocytes 9.3 % (0.0-10.0); Hemoglobin 9.3 g/dL (14.0-18.0); Mean Corpuscular HGB CONC 32.2 g/dL (32.0-36.0); Mean Corpuscular Hemoglobin 30.2 pg (27.0-31.0); Mean Corpuscular Volume 93.7 fL (78.0-98.0); Mean Platelet Volume 6.2 fL (7.4-10.4); Platelet Count 274 thou/uL (130-400); RBC Distribution Width 14.7 % (11.5-14.5); Red Blood Cell (RBC) Count 3.07 mill/uL (4.70-6.10); White Blood Cell (WBC) Count 8.2 thou/uL (4.8-10.8)
[2018-04-19 12:46] VITALS: BP 149/67; TEMP 97.7
--- NOTE | 2018-04-20 17:17 | DIS ---
DATE OF ADMISSION: 04/18/2018 DATE OF DISCHARGE: 04/19/2018 REASON FOR ADMISSION: Blood transfusion for severe anemia. FINAL DIAGNOSES: 1. Severe anemia of 5.8, A. Unspecified etiology. B. Status post blood transfusion, received a total of 3 units packed RBC with improved hemoglobin to 9.3 prior to discharge. 2. History of iron deficiency anemia, continue iron supplement. 3. History of lymphoma in remission under the care of Dr. Contreras. SECONDARY DIAGNOSES: 1. Diabetes type 2. 2. Hypertension. 3. Benign prostatic hypertrophy. 4. Dyslipidemia. 5. Coronary artery disease, status post coronary artery bypass graft. DISPOSITION: Home. CONDITION ON DISCHARGE: Stable. HOME MEDICATIONS: No changes made. DISCHARGE INSTRUCTIONS: 1. Follow up with Dr. Vera in 1 week with repeat CBC as outpatient prior to the clinic visit. The patient to set up appointment in the morning. 2. Follow up with Dr. Contreras, oncologist, in 1 week. The patient to arrange appointment in the mo rning as well. DIET: 2000 kilocalorie ADHD, iron rich foods. ACTIVITIES: ad michael. To avoid strenuous activities until evaluated by the oncologist. HISTORY OF PRESENT ILLNESS AND HOSPITAL COURSE: Mr. Sinha is an 78-year-old male with s ignificant history of longstanding diabetes, chronic anemia, history of iron deficiency, history of l ymphoma in remission under the care of Dr. Contreras in [place]. The patient was seen in the ER on 03/28 for evaluation of injury to the right foot. The patient reports that she was walking at home barefooted and accidentally scraped the right great toe in the carpet tract and saw a cup of blood in the floor. During his further evaluation in the ER, he was found to have incidentally a hemoglobin of 5.8 with an RBC of 1.82 and hematocrit 17.9, platelets 293. There was no significant injury to th e affected right great toe on x-ray. There was no significant active bleeding per since the pa beverley was seen in the ER. The patient was admitted for 24-hour observation and had received blood tr ansfusion. He completed 3 units of packed RBC overnight with a repeat hemoglobin of 9.3 prior to dis charge. The patient has no significant reactions or intolerance to the blood transfusion. He feels much better and stronger after receiving the blood transfusion. There were no new acute issues repor hayder. Vital signs prior to discharge blood pressure of 149/67, temperature 97.7, pulse 70, respiratio ns 20, O2 sats 96% at room air, weight 170 pounds, height 5 feet 10 inches.
== END 2018-04-19 12:40 | disposition home or self-care (01) ==
LOC: MADERS 12:18 → MADMS 14:21
PROVIDERS: ADMIT Family Medicine; ATTEND Family Medicine
DX: D64.9 Anemia, unspecified (principal); E11.9 Type 2 diabetes mellitus without complications; I10 Essential (primary) hypertension; N40.0 Benign prostatic hyperplasia without lower urinary tract symptoms; E78.5 Hyperlipidemia, unspecified; I25.10 Atherosclerotic heart disease of native coronary artery without angina pectoris; Z95.1 Presence of aortocoronary bypass graft; Z79.82 Long term (current) use of aspirin; Z79.01 Long term (current) use of anticoagulants; Z79.899 Other long term (current) drug therapy
CPT/HCPCS: 36415; 36416; 36430; 80048; 80053; 85025; 86850; 86900; 86901; 90471; G0378; P9016

== ENCOUNTER → 2018-05-26 | Emergency (ER) | payer MEDICARE ==
[~2018-05-26] MED LIST changes: +Ketorolac Tromethamine 30 MG/ML VIAL ONE; +Ondansetron HCl/PF 4 MG/2 ML Vial ONE; +Sodium Chloride 0.9% 100 ML BAG ONE; -Sodium Chloride Irrig Solution 250 ML BOT ONE; +cefTRIAXone\\ROCEPHIN 1 GM VIAL ONE
[2018-05-26 01:21] LABS: #Basophils 0.1 thou/uL (0.0-0.2); #Eosinphils 0.2 thou/uL (0.0-0.7); #Lymphocytes 1.6 thou/uL (1.20-3.40); #Monocytes 0.8 thou/uL (0.11-0.59); #Neutrophils 4.8 thou/uL (1.40-6.50); %Basophils 0.8 % (0.0-1.0); %Eosinophils 2.3 % (0.0-10.0); %Lymphocytes 21.7 % (21.0-51.0); %Monocytes 10.3 % (0.0-10.0); Hemoglobin 10.2 g/dL (14.0-18.0); Mean Corpuscular HGB CONC 34.1 g/dL (32.0-36.0); Mean Corpuscular Hemoglobin 30.6 pg (27.0-31.0); Mean Corpuscular Volume 89.5 fL (78.0-98.0); Mean Platelet Volume 6.7 fL (7.4-10.4); Platelet Count 234 thou/uL (130-400); RBC Distribution Width 13.9 % (11.5-14.5); Red Blood Cell (RBC) Count 3.32 mill/uL (4.70-6.10); White Blood Cell (WBC) Count 7.4 thou/uL (4.8-10.8)
[2018-05-26 01:47] LABS: Anion Gap 18 mmol/L (10-20); BUN (Urea Nitrogen) 28 mg/dL (8.4-25.7); Calc. Creatinine Clearance 0 mL/min (70-130); Calcium 10.5 mg/dL (7.8-10.44); Carbon Dioxide 21 mmol/L (23-31); Chloride 104 mmol/L (98-107); Estimated GFR-MDRD 52; Glucose 168 mg/dL (83-110); Sodium 139 mmol/L (136-145)
[2018-05-26 01:55] LABS: CKMB 1.2 ng/mL (0-6.6); Troponin I 0.011 ng/mL (< 0.028)
[2018-05-26 01:56] LABS: Bilirubin Negative (Negative); Blood, Urine Large (Negative); Clarity Turbid (Clear); Glucose, Urine (Dipstick) 100 mg/dL (Negative); Leukocyte Small (Negative); Nitrite Negative (Negative); Protein, Urine (Dipstick) 100 mg/dL (Neg-Trace); Specific Gravity, Urine 1.015 (1.005-1.030); Urobilinogen 0.2 mg/dL (0.2-1.0)
[2018-05-26 01:59] LABS: Bacteria/HPF 3+ HPF (None Seen); RBC/HPF GREATER THAN 50-TNTC HPF (0-3)
--- NOTE | 2018-05-26 09:18 | RAD ---
RADIOGRAPH CHEST 1 VIEW: Date: 05/26/18 HISTORY: 78-year-old female with dyspnea. FINDINGS: There are no air space densities, pulmonary edema, pneumothorax, or cardiomegaly. The lateral costop hrenic angles are sharp. Sternotomy wires. Surgical clips over the left mediastinum. IMPRESSION: 1. No acute cardiopulmonary findings. 2. Status post coronary artery bypass graft surgery is evidence for coronary atherosclerotic disease . da [] POS: [facility]
== END ==
LOC: MADERS 00:37
DX: R33.9 Retention of urine, unspecified (principal); I25.10 Atherosclerotic heart disease of native coronary artery without angina pectoris; I10 Essential (primary) hypertension; F17.210 Nicotine dependence, cigarettes, uncomplicated; E11.9 Type 2 diabetes mellitus without complications; Z79.84 Long term (current) use of oral hypoglycemic drugs; Z79.899 Other long term (current) drug therapy
CPT/HCPCS: 36415; 51702; 71045; 80048; 81003; 81015; 82553; 83880; 84484; 85025; 87077; 87086; 87186; 93005; 94760; 96374; 96375; J0696; J1885; J2405; J7050

== ENCOUNTER 2018-05-30 02:42 | Emergency (ER) | payer MEDICARE ==
[2018-05-30 03:19] LABS: #Basophils 0.1 thou/uL (0.0-0.2); #Eosinphils 0.4 thou/uL (0.0-0.7); #Lymphocytes 1.1 thou/uL (1.20-3.40); #Monocytes 0.6 thou/uL (0.11-0.59); %Eosinophils 6.2 % (0.0-10.0); %Monocytes 10.1 % (0.0-10.0); %Neutrophils 64.7 % (42.0-75.0); Hemoglobin 8.7 g/dL (14.0-18.0); Mean Corpuscular HGB CONC 33.2 g/dL (32.0-36.0); Mean Corpuscular Hemoglobin 29.8 pg (27.0-31.0); Platelet Count 220 thou/uL (130-400); RBC Distribution Width 13.8 % (11.5-14.5); Red Blood Cell (RBC) Count 2.93 mill/uL (4.70-6.10); White Blood Cell (WBC) Count 6.2 thou/uL (4.8-10.8)
== END 2018-05-30 03:26 | disposition home or self-care (01) ==
LOC: MADERS 02:42
DX: Z46.6 Encounter for fitting and adjustment of urinary device (principal); I25.10 Atherosclerotic heart disease of native coronary artery without angina pectoris; E11.9 Type 2 diabetes mellitus without complications; I10 Essential (primary) hypertension; F17.210 Nicotine dependence, cigarettes, uncomplicated; Z79.84 Long term (current) use of oral hypoglycemic drugs; Z79.899 Other long term (current) drug therapy
CPT/HCPCS: 36415; 85025; 99283

== ENCOUNTER 2018-06-05 17:51 | Emergency (ER) | payer MEDICARE ==
[~2018-06-05 17:51] MED LIST changes: -Ketorolac Tromethamine 30 MG/ML VIAL ONE; -Ondansetron HCl/PF 4 MG/2 ML Vial ONE; +Sodium Chloride 0.9% 1,000 ML BAG ONE; -cefTRIAXone\\ROCEPHIN 1 GM VIAL ONE
[2018-06-05] MEDS ORDERED: Acetaminophen 500 MG TAB ONE (18:17)
[2018-06-05 18:31] LABS: Bilirubin Negative (Negative); Blood, Urine Moderate (Negative); Clarity Cloudy (Clear); Glucose, Urine (Dipstick) 100 mg/dL (Negative); Leukocyte Large (Negative); Nitrite Negative (Negative); Protein, Urine (Dipstick) 100 mg/dL (Neg-Trace); Urobilinogen 0.2 mg/dL (0.2-1.0); pH, Urine 7.5 (5.0-9.0)
[2018-06-05 18:42] LABS: Bacteria/HPF 4+ HPF (None Seen); Squamous Epithelial None Seen HPF (0-3)
[2018-06-05 18:45] LABS: ALT (SGPT) 24 U/L (8-55); AST (SGOT) 16 U/L (5-34); Albumin 3.9 g/dL (3.4-4.8); Alkaline Phosphatase 108 U/L (40-150); Anion Gap 15 mmol/L (10-20); BUN (Urea Nitrogen) 38 mg/dL (8.4-25.7); Bilirubin, Total 0.3 mg/dL (0.2-1.2); Calc. Creatinine Clearance 0 mL/min (70-130); Calcium 9.5 mg/dL (7.8-10.44); Carbon Dioxide 20 mmol/L (23-31); Estimated GFR-MDRD 38; Globulin 2.7 g/dL (2.4-3.5); Glucose 195 mg/dL (83-110); Potassium 5.4 mmol/L (3.5-5.1); Protein, Total 6.6 g/dL (5.8-8.1); Sodium 133 mmol/L (136-145)
[2018-06-05 18:46] LABS: Hemoglobin 9.1 g/dL (14.0-18.0); MDiff Complete? YES; Manual Diff?? YES; Mean Corpuscular HGB CONC 33.5 g/dL (32.0-36.0); Mean Corpuscular Hemoglobin 30.1 pg (27.0-31.0); Mean Corpuscular Volume 89.9 fL (78.0-98.0); Mean Platelet Volume 6.9 fL (7.4-10.4); Platelet Count 291 thou/uL (130-400); RBC Distribution Width 13.1 % (11.5-14.5); Red Blood Cell (RBC) Count 3.01 mill/uL (4.70-6.10); White Blood Cell (WBC) Count 9.7 thou/uL (4.8-10.8)
[2018-06-05 18:47] LABS: Band 11 % (5-11); Eosinophils 2 % (0-10); Lymphocytes 10 % (21-51); Monocytes 6 % (0-10); Neutrophil 71 % (42-75); PLT Morphology Comment Appears Adequate
[2018-06-05 18:49] LABS: Chloride 103 mmol/L (98-107)
[2018-06-05] MEDS ORDERED: Piperacillin/Tazobactam 4.5 GM VIAL ONE (18:49)
== END 2018-06-05 19:35 | disposition short-term general hospital (02) ==
LOC: MADERS 17:51
DX: A41.9 Sepsis, unspecified organism (principal); R65.20 Severe sepsis without septic shock; N17.9 Acute kidney failure, unspecified; I25.10 Atherosclerotic heart disease of native coronary artery without angina pectoris; I10 Essential (primary) hypertension; E11.9 Type 2 diabetes mellitus without complications; F17.210 Nicotine dependence, cigarettes, uncomplicated; Z79.899 Other long term (current) drug therapy; Z79.84 Long term (current) use of oral hypoglycemic drugs
CPT/HCPCS: 36415; 80053; 81003; 81015; 83605; 85025; 87040; 87077; 87086; 87149; 87186; 96361; 96365; J2543; J7050

== ENCOUNTER 2018-06-24 13:23 | Inpatient (IN) | payer MEDICARE ==
[2018-06-24 15:26] VITALS: BMI 23.1
[2018-06-24] MEDS ORDERED: Mirtazapine 15 MG TAB PO PRN (16:27)
[2018-06-24 17:26] LABS: #Eosinphils 0.1 thou/uL (0.0-0.7); #Lymphocytes 1.3 thou/uL (1.20-3.40); #Monocytes 0.6 thou/uL (0.11-0.59); #Neutrophils 5.6 thou/uL (1.40-6.50); %Basophils 0.5 % (0.0-1.0); %Eosinophils 0.8 % (0.0-10.0); %Monocytes 8.1 % (0.0-10.0); %Neutrophils 73.6 % (42.0-75.0); Hemoglobin 8.2 g/dL (14.0-18.0); Mean Corpuscular HGB CONC 34.1 g/dL (32.0-36.0); Mean Corpuscular Hemoglobin 30.2 pg (27.0-31.0); Mean Corpuscular Volume 88.4 fL (78.0-98.0); Mean Platelet Volume 5.9 fL (7.4-10.4); Platelet Count 396 thou/uL (130-400); RBC Distribution Width 15.2 % (11.5-14.5); Red Blood Cell (RBC) Count 2.73 mill/uL (4.70-6.10); White Blood Cell (WBC) Count 7.7 thou/uL (4.8-10.8)
[2018-06-24 17:40] LABS: ALT (SGPT) 19 U/L (8-55); AST (SGOT) 14 U/L (5-34); Albumin 4.1 g/dL (3.4-4.8); Alkaline Phosphatase 105 U/L (40-150); Anion Gap 17 mmol/L (10-20); BUN (Urea Nitrogen) 32 mg/dL (8.4-25.7); Bilirubin, Total 0.3 mg/dL (0.2-1.2); Calc. Creatinine Clearance 44 mL/min (70-130); Calcium 9.4 mg/dL (7.8-10.44); Carbon Dioxide 21 mmol/L (23-31); Chloride 104 mmol/L (98-107); Estimated GFR-MDRD 49; Globulin 2.3 g/dL (2.4-3.5); Glucose 194 mg/dL (83-110); Potassium 5.1 mmol/L (3.5-5.1); Protein, Total 6.4 g/dL (5.8-8.1); Sodium 137 mmol/L (136-145)
[2018-06-24] MEDS: Ferrous Sulfate 325 MG TAB PO SCH (20:26)
[2018-06-24] MEDS: Metoprolol Tartrate 25 MG TAB PO SCH (20:26)
[2018-06-24] MEDS: metFORMIN 500 MG TAB PO SCH (20:26)
[2018-06-24] MEDS ORDERED: Polyethylene Glycol 3350 17 GM Packet PO SCH (21:00)
[2018-06-24] MEDS ORDERED: Atorvastatin Calcium 10 MG TAB PO SCH (21:00)
[2018-06-24] MEDS ORDERED: Metoprolol Tartrate 25 MG TAB PO SCH (21:00)
[2018-06-25] MEDS ORDERED: glipiZIDE 5 MG TAB PO SCH (07:30)
[2018-06-25 07:44] VITALS: TEMP 97.2
[2018-06-25] MEDS: Metoprolol Tartrate 25 MG TAB PO SCH (08:05)
[2018-06-25] MEDS: Ferrous Sulfate 325 MG TAB PO SCH ×2 (08:05→15:19)
[2018-06-25] MEDS: metFORMIN 500 MG TAB PO SCH (08:05)
--- NOTE | 2018-06-25 08:16 | HP ---
ATTENDING: Dr. Aminta Vera REASON FOR ADMISSION: General weakness. HISTORY OF PRESENT ILLNESS: Mr. Sinha is an 78-year-old male with significant history of non-Hodgkin's lymphoma status post chemotherapy, chronic anemia with history of recurrent blood transfusions, diabetes type 2, iron deficiency anemia, hypertension. The patient was recently admitted to [facility] on 06/05/2018 and was discharged on 06/09/2018 secondary to sepsis deemed to be secondary to urinary tract infection with Enterococcus species, complicated with bladder outlet obstruction, bilateral hydronephrosis secondary to bladder outlet obstruction, acute kidney injury on chronic kidney disease stage 2, hyponatremia, mild and labile type 2 diabetes. The patient was sent home with Simeon catheter in place. The patient was sent home with oral Levaquin that he will take for 3 more weeks. The patient returns to the clinic today for hospital followup. Of note, the patient has cancelled 2 times in a row of his follow up clinic appointments post- hospitalization as he reports that he is unable to get out of the house secondary to general weakness. When he showed up in the clinic, he was very weak, pale, and reports that he lost 9 pounds since the last clinic visit. The patient admits that he is not eating well at home as he should be. He is not checking his blood sugar at all and he ran out of his diabetic medications. Upon evaluation in the clinic, the patient's blood pressure was notably low at 105/67 with a heart rate of 68 and O2 saturation 98%. His weight was down to 160 from baseline from previous 169 on his last visit in January. The patient showed up in the clinic with a rolling walker. Patient used to be active, independently living, ambulatory without use assistive device. He reports that he has been having a hard time getting up and ambulating due to his chronic low back/hip pains that had gradually worsened over the past couple of weeks that he has not been walking around. He remains febrile free. His social condition: he reports this his housing condition is basically lives by himself. He has a that lives with him but is not actively involved in his care. His daughter, who lives nearby is the one that takes care of him, but his daughter has been sick herself lately as well. He is basically homebound at this time. drove him to the clinic today upon request. Upon further discussion of his care, with the patient and his daughter on the phone, they are both in agreement to be admitted to [place] for possible therapy and further observation of his blood pressure. PAST MEDICAL HISTORY: 1. Non-Hodgkin's lymphoma, status post chemotherapy complicated with chronic anemia/iron deficiency, requiring multiple blood transfusions. 2. Diabetes. 3. Hypertension. 4. Hyperlipidemia. 5. Coronary artery disease, status post coronary artery bypass graft x1 vessel approximately 4-5 years ago. 6. History of prior paracentesis done in December of this year with 2 liters of fluid removed by Dr. Chacon. The patient has a pending appointment in a.m. for a possible colonoscopy 7. History of anemia, previously attributed to chronic anemia with component of iron deficiency. Patient had required 3 unit packed RBC transfusion approximately 3 months ago without evidence of acute bleeding. Again, he has a pending colonoscopy procedure with Dr. Chacon 8. Chronic gastroesophageal reflux disease. 9. History of tobacco use. 10. Benign prostatic hypertrophy. 11. Depression and anxiety. PAST SURGICAL HISTORY: 1. History of heart valve replacement. The patient is unable to recall which valve. 2. Status post left elbow surgery. HOME MEDICATIONS: Ferrous sulfate 325 mg t.i.d., famotidine 20 mg b.i.d., docusate 100 mg p.o. b.i.d., Bisacodyl 10 mg p.o. daily p.r.n., atorvastatin 20 mg p.o. at bedtime, acetaminophen 650 mg q.4h. p.r.n., metoprolol 25 mg p.o. b.i.d., finasteride 5 mg p.o. daily, metformin 1000 mg p.o. b.i.d., tamsulosin 0.4 mg p.o. daily, multivitamins 1 tablet p.o. daily, mirtazapine 30 mg p.o. daily, Levaquin 500 mg p.o. daily for 21 days. ALLERGIES: NKDA. SOCIAL HISTORY: The patient is , home situation as per above. He is a smoker, currently smokes half a pack a day of cigarettes for more than 30 years. He has a remote history of alcohol abuse. Denies illicit drug use. FAMILY HISTORY: Noncontributory. REVIEW OF SYSTEMS: GENERAL: Denies fever or chills. Reports fatigue, general weakness, loss of appetite. HEENT: No acute visual changes or hearing changes. Reports intermittent dizziness upon changing positions. CARDIAC: Denies chest pain, edema, paroxysmal nocturnal dyspnea, palpitations. Reports some shortness of breath upon exertion that resolves with rest. RESPIRATORY: Denies cough, sputum production, bloody sputum, pain with breathing. GASTROINTESTINAL: Denies nausea, vomiting, abdominal pain, rectal bleeding, black tarry stools, hematemesis, hematochezia. History of ascites requiring paracentesis. GENITOURINARY: Denies dysuria, hematuria, incontinence. Reports obstructive symptoms requiring insertion of indwelling Simeon catheter. MUSCULOSKELETAL: Reports joint pains. Denies muscle aches. Denies rash. SKIN: Denies nonhealing ulcers, pruritus, jaundice, reports pallor. PSYCH: Reports depressive symptoms and anxiety. Denies insomnia, hallucinations, suicidal thoughts or ideations or plans. ENDOCRINE: Reports hyperglycemia secondary to diabetes. Denies heat or cold intolerance, polyphagia, polydipsia, polyuria. HEMATOLOGY: has chronic anemia, history of multiple blood transfusion, both in distant and recent past.Denies active bleeding. Previous procedures from recent hospitalization includes sodium ranges between 133-135, creatinine ranges between 1.39-1.76 with estimated GFR ranges between 37 and 49, serum iron level 8, TIBC 184. Transferrin 155, ferritin 172. Albumin 3.5, B12 581, folate 12.9. CBC showed cell count ranging between 8.3- 14.9, hemoglobin ranging between 7.3-8.2. Blood cultures dated 06/05/2018 showed 1 out of 2 positive for Enterococcus faecalis. Urine culture dated 06/05 positive for greater than 100,000 colonies of Enterococcus species, pansensitive except for tetracycline. Urine culture dated 06/07/2018 showed no growth at [address] of the abdomen and pelvis dated 06/05/2018 showed bilateral hydronephrosis and hydroureter consistent with obstructive uropathy. Lymphadenopathy noted in retroperitoneal distribution. Bilateral renal ultrasound dated 06/06/2018 showed bilateral hydronephrosis with bladder wall thickening. PHYSICAL EXAMINATION: VITAL SIGNS: Blood pressure 117/59, temperature 97.8, pulse 78, respirations 20 , O2 sats 100% room air, weight 161 pounds and 6 ounces. Height 5 feet 10 inches. GENERAL: The patient is awake, alert, oriented x3, pale, chronically ill- looking and generally fatigue-looking, elderly. Comfortable in bed, not in acute distress. HEENT: Normocephalic, atraumatic. PERRL, intact EOMI. Pale conjunctivae. Anicteric sclerae. Oral mucosa is moist. NECK: Supple. No LAD, no thyromegaly, no JVD, no bruit. CHEST: Normal excursion, clear to auscultation bilaterally. HEART: RRR. Normal S1 and S2. ABDOMEN: Mildly distended, soft, normoactive bowel sounds, nontender, no rebound, no guarding. Negative CVA tenderness bilaterally. EXTREMITIES: No edema, no cyanosis. SKIN: Intact. Moist and warm, pale. No jaundice. PSYCHIATRIC: Appears calm with appropriate demeanor and affect. Cooperative and pleasant. GENITOURINARY: Simeon catheter in place with 100 mL rachael colored urine. ASSESSMENT AND PLAN: An 78-year-old with recent hospitalization secondary to sepsis deemed from urosepsis with Enterococcus species growth, status post IV antibiotic therapy from the hospital. Currently on oral antibiotic and completing oral antibiotic for 21-day course. The patient presented with general weakness, weight loss and low blood pressure at this time. The patient' s social situation is deemed not a good environment for the patient's recovery at this point secondary to poor social support. The patient was admitted for physical therapy evaluation. We will also continue observing his blood pressure at this point. We will hold his beta ruperto at this point. The patient will also be monitored for his oral intake side by side with dietary consultation and Accu-Chek monitoring. We will hold his GI outpatient consultation which was scheduled tomorrow and it will be rescheduled by his daughter with Dr. Chacon, post-hospitalization. We will continue on his current medications as modified per list. Gastrointestinal prophylaxis with H2 ruperto. DVT prophylaxis with SCDs. Routine baseline labs ordered. Further recommendations depending on the hospital course. CODE STATUS: Patient reports FULL CODE. MTDD
[2018-06-25] MEDS ORDERED: Multivitamin W/ Minerals 1 TAB PO SCH (09:00)
[2018-06-25] MEDS ORDERED: Finasteride 5 MG TAB PO SCH (09:00)
[2018-06-25] MEDS ORDERED: Tamsulosin HCl 0.4 MG CAP PO SCH (09:00)
[2018-06-25 16:31] VITALS: BP 121/61
== END 2018-06-25 16:24 | disposition swing bed (61) | DRG 315 ==
LOC: MADMS 14:17
PROVIDERS: ADMIT Family Medicine; ATTEND Family Medicine
DX: R03.1 Nonspecific low blood-pressure reading (principal); C85.90 Non-Hodgkin lymphoma, unspecified, unspecified site; R53.1 Weakness; D50.9 Iron deficiency anemia, unspecified; I12.9 Hypertensive chronic kidney disease with stage 1 through stage 4 chronic kidney disease, or unspecified chronic kidney disease; E11.22 Type 2 diabetes mellitus with diabetic chronic kidney disease; N18.2 Chronic kidney disease, stage 2 (mild); M54.5 Low back pain; G89.29 Other chronic pain; E78.5 Hyperlipidemia, unspecified; Z95.1 Presence of aortocoronary bypass graft; D63.1 Anemia in chronic kidney disease; K21.9 Gastro-esophageal reflux disease without esophagitis; N40.0 Benign prostatic hyperplasia without lower urinary tract symptoms; F32.9 Major depressive disorder, single episode, unspecified; F41.9 Anxiety disorder, unspecified; F17.210 Nicotine dependence, cigarettes, uncomplicated; E11.65 Type 2 diabetes mellitus with hyperglycemia; R63.4 Abnormal weight loss
CPT/HCPCS: 36416; 80053; 85025; 87086; 36415-59; G8978-GP-CK; G8979-GP-CI; G8987-GO-CJ; G8988-GO-CH

== ENCOUNTER 2018-08-06 11:30 | Emergency (ER) | payer MEDICARE ==
[2018-08-06 12:36] LABS: Bilirubin Negative (Negative); Blood, Urine Large (Negative); Clarity Slightly Cloudy (Clear); Glucose, Urine (Dipstick) 500 mg/dL (Negative); Leukocyte Moderate (Negative); Nitrite Negative (Negative); Protein, Urine (Dipstick) 30 mg/dL (Neg-Trace); Urobilinogen 0.2 mg/dL (0.2-1.0); pH, Urine 6.5 (5.0-9.0)
[2018-08-06 12:40] LABS: Bacteria/HPF 1+ HPF (None Seen); RBC/HPF GREATER THAN 50-TNTC HPF (0-3); Squamous Epithelial 0-3 HPF (0-3); WBC/HPF 21-50 HPF (0-3)
[2018-08-06] MEDS ORDERED: Cephalexin 500 MG CAP ONE (12:46)
== END 2018-08-06 13:10 | disposition home or self-care (01) ==
LOC: MADERS 11:30
DX: N39.0 Urinary tract infection, site not specified (principal); I25.9 Chronic ischemic heart disease, unspecified; E11.9 Type 2 diabetes mellitus without complications; I10 Essential (primary) hypertension; F17.210 Nicotine dependence, cigarettes, uncomplicated; Z79.84 Long term (current) use of oral hypoglycemic drugs; Z79.899 Other long term (current) drug therapy
CPT/HCPCS: 51703; 81003; 81015

== ENCOUNTER 2018-08-07 10:07 | Outpatient (CLI) | payer MEDICARE ==
[2018-08-09 16:06] LABS: Sodium 137 mmol/L (136-145)
[2018-08-09 16:07] LABS: Albumin 4.4 g/dL (3.4-4.8); Anion Gap 13 mmol/L (10-20); BUN (Urea Nitrogen) 23 mg/dL (8.4-25.7); Bilirubin, Total 0.3 mg/dL (0.2-1.2); Calc. Creatinine Clearance 0 mL/min (70-130); Calcium 9.7 mg/dL (7.8-10.44); Carbon Dioxide 25 mmol/L (23-31); Chloride 104 mmol/L (98-107); Estimated GFR-MDRD 61; Globulin 2.7 g/dL (2.4-3.5); Glucose 279 mg/dL (83-110); Potassium 4.5 mmol/L (3.5-5.1); Protein, Total 7.1 g/dL (5.8-8.1)
[2018-08-09 16:08] LABS: ALT (SGPT) 21 U/L (8-55); AST (SGOT) 13 U/L (5-34); Alkaline Phosphatase 113 U/L (40-150); Cholesterol 162 mg/dL (< 200 Desired); HDL Cholesterol 45 mg/dL (>60 Neg Risk); Triglycerides 100 mg/dL (Less than 150)
[2018-08-09 16:09] LABS: Cardiac Risk 3.6 (Less than 4.5); LDL Cholesterol, Calculated 97 mg/dL
[2018-08-09 16:58] LABS: Hemoglobin A1c 6.7 % (4.0-6.0)
== END 2018-08-07 10:08 | disposition home or self-care (01) ==
LOC: MADLAB 10:07
PROVIDERS: ATTEND Family Medicine
DX: E11.9 Type 2 diabetes mellitus without complications (principal); E78.2 Mixed hyperlipidemia
CPT/HCPCS: 36415; 80053; 80061; 83036

== ENCOUNTER 2018-10-12 23:02 | Emergency (ER) | payer MEDICARE ==
[~2018-10-12 23:02] MED LIST changes: +Iopamidol 370 76% 100 ML VIAL ONE; -Sodium Chloride 0.9% 1,000 ML BAG ONE; -Sodium Chloride 0.9% 100 ML BAG ONE
[2018-10-13] MEDS ORDERED: Morphine 4 MG/ML VIAL ONE (00:50)
[2018-10-13 00:56] LABS: Prothrombin Time 13.1 SEC (12.0-14.7)
[2018-10-13 01:00] LABS: ALT (SGPT) 23 U/L (8-55); AST (SGOT) 18 U/L (5-34); Albumin 4.1 g/dL (3.4-4.8); Alkaline Phosphatase 98 U/L (40-150); Anion Gap 12 mmol/L (10-20); BUN (Urea Nitrogen) 33 mg/dL (8.4-25.7); Bilirubin, Total 0.4 mg/dL (0.2-1.2); Calc. Creatinine Clearance 0 mL/min (70-130); Calcium 9.3 mg/dL (7.8-10.44); Carbon Dioxide 25 mmol/L (23-31); Chloride 105 mmol/L (98-107); Estimated GFR-MDRD 57; Globulin 2.5 g/dL (2.4-3.5); Glucose 218 mg/dL (83-110); Protein, Total 6.6 g/dL (5.8-8.1); Sodium 138 mmol/L (136-145)
[2018-10-13 01:11] LABS: #Basophils 0.1 thou/uL (0.0-0.2); #Eosinphils 0.3 thou/uL (0.0-0.7); #Monocytes 0.7 thou/uL (0.11-0.59); #Neutrophils 7.4 thou/uL (1.40-6.50); %Basophils 0.6 % (0.0-1.0); %Eosinophils 2.9 % (0.0-10.0); %Lymphocytes 10.5 % (21.0-51.0); %Monocytes 7.5 % (0.0-10.0); %Neutrophils 78.6 % (42.0-75.0); Hemoglobin 11.6 g/dL (14.0-18.0); Mean Corpuscular HGB CONC 33.7 g/dL (32.0-36.0); Mean Corpuscular Hemoglobin 29.6 pg (27.0-31.0); Mean Corpuscular Volume 87.6 fL (78.0-98.0); Mean Platelet Volume 8.2 fL (7.4-10.4); Platelet Count 228 thou/uL (130-400); Red Blood Cell (RBC) Count 3.93 mill/uL (4.70-6.10); White Blood Cell (WBC) Count 9.4 thou/uL (4.8-10.8)
[2018-10-13] MEDS ORDERED: Cefepime 1 GM VIAL ONE (01:56)
[2018-10-13 02:03] LABS: Bilirubin Negative (Negative); Blood, Urine Large (Negative); Clarity Turbid (Clear); Glucose, Urine (Dipstick) 250 mg/dL (Negative); Leukocyte Small (Negative); Nitrite Negative (Negative); Protein, Urine (Dipstick) > or equal to 300 mg/dL (Neg-Trace); Urobilinogen 0.2 mg/dL (0.2-1.0); pH, Urine 6.5 (5.0-9.0)
[2018-10-13] MEDS ORDERED: Sodium Chloride 0.9% 100 ML ONE (02:03)
[2018-10-13 02:04] LABS: Specific Gravity, Urine 1.032 (1.002-1.036)
[2018-10-13 02:05] LABS: Bacteria/HPF 4+ HPF (None Seen); Hyaline Casts/LPF 7-10 HYALINE CAST LPF (0-3 Hyaline); Other Casts/LPF 7-10 MIXED CASTS LPF (0-3 Hyaline); RBC/HPF GREATER THAN 50-TNTC HPF (0-3); Transitional Epithelial 0-3 HPF (0-3)
--- NOTE | 2018-10-13 08:16 | RAD ---
CHEST ONE VIEW: History: Chest pain, fall, hypertension. Comparison: 05-26-18 FINDINGS: Advanced degenerative changes of the left shoulder. 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 The lungs are without focal confluent airspace, consolidation, pneumothorax or effusion. Old left claudio ed posterior rib fractures. No evidence of acute displaced rib fracture. IMPRESSION: No acute intrathoracic abnormality. POS: [facility]
--- NOTE | 2018-10-13 10:52 | CT ---
PRELIMINARY REPORT/[facility]/EMERGENTY AFTER-HOURS PROCEDURE CT Abdomen and Pelvis With Contrast EXAM DATE/TIME: 10/13/2018 1:06 AM CLINICAL HISTORY: 78 years old, male; Injury or trauma; Fall; Initial encounter; Blunt; Lower; Injury date: 10-13-18; I njury details: PT fell at 1500 pain to back. HX stomach lymphoma, chemo [id number] in remission TECHNIQUE: Axial computed tomography images of the abdomen and pelvis with intravenous contrast. All CT scans at this facility use at least one of these dose optimization techniques: automated exposure control; mA and/or kV adjustment per patient size (includes targeted exams where dose is matched to clinical ind ication); or iterative reconstruction. CONTRAST: 96 ml of ISOVUE administered intravenously. COMPARISON: No relevant prior studies available. FINDINGS: Lower thorax: No acute findings. ABDOMEN: Liver: Normal. No mass. Gallbladder and bile ducts: Normal. No calcified stones. No ductal dilation. Pancreas: Normal. No ductal dilation. Spleen: Normal. No splenomegaly. Adrenals: Normal. No mass. Kidneys and ureters: Inflammatory thickening of the wall of the ureters and renal pelvis bilaterally, consistent with pyelonephritis. There is mild to moderate bilateral hydroureteronephrosis without ob structing urolithiasis. Stomach and bowel: Colonic diverticulosis. No diverticulitis. No bowel wall thickening or intestinal obstruction. Appendix: Normal appendix. PELVIS: Bladder: Substantial diffuse thickening of the wall of the urinary bladder with mucosal hyper enhance ment. Gas in the nondependent lumen of the urinary bladder with no history of recent straight cathete rization or urologic intervention. Patient is reportedly diabetic. 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 Reproductive: Prostatomegaly with what appears to be a TURP defect. No discrete prostate mass. ABDOMEN and PELVIS: Intraperitoneal space: No hemoperitoneum, pneumoperitoneum, mesenteric/omental contusion, or retroper itoneal hematoma. Bones/joints: No acute fracture. No dislocation. Soft tissues: Unremarkable. Vasculature: There is infiltrating masslike homogeneously enhancing solid material in the retroperito neum and deep central mesentery, surrounding parts of the aorta, left renal artery, superior mesenter ic artery, and celiac axis, most consistent in appearance with lymphoma. By report patient has history of lymphoma. Lymph nodes: See Vasculature Finding. Other findings: 2.2 cm AAA. No rupture. No traumatic organ injury. IMPRESSION: 1. Emphysematous cystitis and bilateral pyelonephritis. 2. There is mild to moderate bilateral hydroureteronephrosis without obstructing urolithiasis. 3. There is infiltrating masslike homogeneously enhancing solid material in the retroperitoneum and d eep central mesentery, surrounding parts of the aorta, left renal artery, superior mesenteric artery, and celiac axis, most consistent in appearance with lymphoma. By report patient has history of lymphoma. 4. No acute traumatic injury. Findings discussed with NORBERTO HARRY MD at time of interpretation. Thank you for allowing us to participate in the care of your patient. Dictated and Authenticated by: Jonas Angeles MD FINAL REPORT CT ABDOMEN AND PELVIS WITH IV CONTRAST: I agree with the preliminary report given by Dr. Angeles from [facility]. POS: [facility]
--- NOTE | 2018-10-13 10:54 | CT ---
PRELIMINARY REPORT/[facility]/EMERGENTY AFTER-HOURS PROCEDURE CT Lumbar Spine Without Contrast EXAM DATE/TIME: 10/13/2018 12:34 AM CLINICAL HISTORY: 78 years old, male; Pain and injury or trauma; Fall; Initial encounter; Blunt trauma (contusions or h ematomas); Low back pain; Injury date: 10-12-18; Injury details: S/P fall x 9 hours; Pain to the cocc yx with movement TECHNIQUE: Axial computed tomography images of the lumbar spine without intravenous contrast. All CT scans at [facility] use at least one of these dose optimization techniques: automated exposure control; mA an d/or kV adjustment per patient size (includes targeted exams where dose is matched to clinical indica tion); or iterative reconstruction. COMPARISON: No relevant prior studies available. FINDINGS: Vertebrae: No fracture. Discs/Spinal canal/Neural foramina: Multilevel neural foramina narrowing. Nerve root impingement not excluded. Soft tissues: See Reproductive Finding. Vasculature: There is dense stranding with appearance of hematoma spanning 6 cm in the left para-aort ic retroperitoneum, extending along the celiac artery and SMA toward the pancreas. 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 Kidneys and ureters: Bilateral hydroureteronephrosis secondary to obstruction of the distal ureters a t the UVJs secondary to mass like bladder wall thickening, mild on the right, moderate on the left. N o obstructive urolithiasis. Stomach and bowel: Colonic diverticulosis. Reproductive: Mass like enlargement of the prostate contiguous with/extending into the posterior wall of the urinary bladder. Substantial diffuse solid thickening of the wall of the urinary bladder without associated inflammatory change. Findings are suspicious for either bladder malignancy or loca lly invasive prostate malignancy. Breast IMPRESSION: 1. There is dense stranding with appearance of hematoma spanning 6 cm in the left para-aortic retrope ritoneum, extending along the celiac artery and SMA toward the pancreas. 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 Appearance is suspicious for retroperitoneal hematoma related to aortic rupt ure; however, 2.5 cm AAA do not typically rupture. Patient not anticoagulated. Metastatic disease les s likely but not excluded. Recommend emergent CTA abdomen with additional venous phase for further ch aracterization. 2. Bilateral hydroureteronephrosis secondary to obstruction of the distal ureters at the UVJs seconda ry to masslike bladder wall thickening, mild on the right, moderate on the left. No obstructive uroli thiasis. 3. No fracture. Findings discussed with NORBERTO HARRY MD at time of interpretation. Thank you for allowing us to participate in the care of your patient. Dictated and Authenticated by: Jonas Angeles MD 10/13/2018 1:10 AM Central Time ([place] & [place]) FINAL REPORT CT LUMBAR SPINE WITHOUT CONTRAST: HISTORY: Pain. Trauma. Fall. COMPARISON: CT stone protocol from 06/05/2018. FINDINGS: There is no acute fracture or malalignment of the lumbar spine. The retroperitoneal periaortic soft tissue mass is similar and likely represents confluent adenopathy, which may be sequela of treated ly mphoma versus a component of sclerosing with enteritis. There is also some medialization of the uret ers, suggesting a component of fibrosis. Severe hydroureteronephrosis with marked enlargement of the prostate, as well as chronic thickening of the urinary bladder, suggestive of chronic bladder outlet obstruction. Cortical buckling of the sacrum, at the inferior margin of S3, likely chronic in natur e, not felt to represent an acute fracture. CODE: QA POS: [facility]
--- NOTE | 2018-10-13 10:55 | CT ---
PRELIMINARY REPORT/[facility]/EMERGENTY AFTER-HOURS PROCEDURE CT Cervical Spine Without Contrast EXAM DATE/TIME: 10/13/2018 12:21 AM CLINICAL HISTORY: 78 years old, male; Pain and injury or trauma; Fall; Initial encounter; Blunt trauma; Neck pain; Inju ry date: 10-12-18; Injury details: S/P ground level fall x 9 hours; Neck pain TECHNIQUE: Axial computed tomography images of the cervical spine without intravenous contrast. All CT scans at this facility use at least one of these dose optimization techniques: automated exposure control; mA and/or kV adjustment per patient size (includes targeted exams where dose is matched to clinical karen cation); or iterative reconstruction. COMPARISON: No relevant prior studies available. FINDINGS: Vertebrae: Degenerative change. No fracture. Discs/Spinal canal/Neural foramina: No spinal stenosis. No neural foraminal narrowing. Soft tissues: Unremarkable. Lungs: Lung apices are normal. IMPRESSION: No fracture. Thank you for allowing us to participate in the care of your patient. Dictated and Authenticated by: Jonas Angeles MD 10/13/2018 12:44 AM Central Time ([place] & [place]) CT CERVICAL SPINE WITHOUT CONTRAST: HISTORY: Fall. COMPARISON: CT cervical spine from 2004. FINDINGS/IMPRESSION: The findings and impression are concordant with the preliminary report. POS: [facility]
--- NOTE | 2018-10-13 10:56 | CT ---
PRELIMINARY REPORT/[facility]/EMERGENTY AFTER-HOURS PROCEDURE CT Head Without Contrast EXAM DATE/TIME: 10/13/2018 12:17 AM CLINICAL HISTORY: 78 years old, male; Pain and injury or trauma; Fall; Initial encounter; Blunt trauma (contusions or h ematomas); Without loss of consciousness; Headache; Post-traumatic; Injury date: 10-12-18; Injury det ails: S/P ground level fall x 9 hours TECHNIQUE: Axial computed tomography images of the head/brain without contrast. All CT scans at this facility use at least one of these dose optimization techniques: automated expos ure control; mA and/or kV adjustment per patient size (includes targeted exams where dose is matched to clinical indication); or iterative reconstruction. COMPARISON: No relevant prior studies available. FINDINGS: Brain: Volume loss and chronic small vessel ischemic change. No brain edema. No intracranial hemorrha ge. Ventricles: Normal. No ventriculomegaly. Bones/joints: Normal. No acute fracture. Sinuses: Normal as visualized. No acute sinusitis. Mastoid air cells: Normal as visualized. No mastoid effusion. Soft tissues: Normal. IMPRESSION: No acute brain findings. Thank you for allowing us to participate in the care of your patient. Dictated and Authenticated by: Jonas Angeles MD 10/13/2018 12:41 AM Central Time ([place] & [place]) CT BRAIN WITHOUT CONTRAST: HISTORY: Fall. Pain. COMPARISON: CT brain from 2009. FINDINGS/IMPRESSION: The findings and impression are concordant with the preliminary report. POS: [facility]
== END 2018-10-13 03:10 | disposition short-term general hospital (02) ==
LOC: MADERS 23:02
DX: N13.2 Hydronephrosis with renal and ureteral calculous obstruction (principal); N39.0 Urinary tract infection, site not specified; I10 Essential (primary) hypertension; I25.10 Atherosclerotic heart disease of native coronary artery without angina pectoris; F17.210 Nicotine dependence, cigarettes, uncomplicated; Z79.899 Other long term (current) drug therapy; Z79.84 Long term (current) use of oral hypoglycemic drugs; W01.10XA Fall on same level from slipping, tripping and stumbling with subsequent striking against unspecified object, initial encounter
CPT/HCPCS: 36415; 70450; 71045; 72125; 72131; 74177; 80053; 81003; 81015; 83605; 85025; 85610; 96365; 96375; J0692; J2270; J7050

== ENCOUNTER 2018-12-27 13:57 | Emergency (ER) | payer MEDICARE ==
[2018-12-27] MEDS ORDERED: Aspirin Chewable 81 MG TAB ONE (14:18)
[2018-12-27 14:33] LABS: #Eosinphils 0.1 thou/uL (0.0-0.7); #Lymphocytes 1.3 thou/uL (1.20-3.40); #Monocytes 0.7 thou/uL (0.11-0.59); #Neutrophils 4.5 thou/uL (1.40-6.50); %Basophils 0.5 % (0.0-1.0); %Eosinophils 1.6 % (0.0-10.0); %Lymphocytes 20.1 % (21.0-51.0); %Monocytes 9.9 % (0.0-10.0); %Neutrophils 67.9 % (42.0-75.0); Hemoglobin 12.2 g/dL (14.0-18.0); Mean Corpuscular HGB CONC 32.5 g/dL (32.0-36.0); Mean Corpuscular Hemoglobin 30.5 pg (27.0-31.0); Mean Corpuscular Volume 93.9 fL (78.0-98.0); Mean Platelet Volume 7.7 fL (7.4-10.4); Platelet Count 226 thou/uL (130-400); Red Blood Cell (RBC) Count 3.99 mill/uL (4.70-6.10); White Blood Cell (WBC) Count 6.6 thou/uL (4.8-10.8)
[2018-12-27 14:51] LABS: ALT (SGPT) 34 U/L (8-55); AST (SGOT) 19 U/L (5-34); Albumin 4.8 g/dL (3.4-4.8); Alcohol Less than 10 mg/dL (Less than 10); Alkaline Phosphatase 102 U/L (40-150); Anion Gap 10 mmol/L (10-20); BUN (Urea Nitrogen) 38 mg/dL (8.4-25.7); Bilirubin, Total 0.3 mg/dL (0.2-1.2); Calc. Creatinine Clearance 0 mL/min (70-130); Calcium 9.6 mg/dL (7.8-10.44); Carbon Dioxide 27 mmol/L (23-31); Chloride 106 mmol/L (98-107); Estimated GFR-MDRD 51; Globulin 2.6 g/dL (2.4-3.5); Glucose 237 mg/dL (83-110); Potassium 4.4 mmol/L (3.5-5.1); Protein, Total 7.4 g/dL (5.8-8.1); Sodium 139 mmol/L (136-145)
--- NOTE | 2018-12-27 15:48 | RAD ---
CHEST TWO VIEWS: HISTORY: Chest pain. COMPARISON: 03/31/2017 FINDINGS: The cardiac silhouette and pulmonary vasculature are unremarkable. The mediastinum is midline with a ortic calcification and postoperative changes. The lungs are hyperinflated. No confluent air space consolidation, pneumothorax, or pleural fluid is apparent. Old left lateral rib fractures. IMPRESSION: 1. Pulmonary hyperinflation and other chronic type findings. No active cardiopulmonary abnormalitie s demonstrated. 2. Atherosclerosis. POS: [facility]
== END 2018-12-27 18:20 | disposition home or self-care (01) ==
LOC: MADERS 13:57
DX: R07.9 Chest pain, unspecified (principal); I10 Essential (primary) hypertension; E11.9 Type 2 diabetes mellitus without complications; I25.10 Atherosclerotic heart disease of native coronary artery without angina pectoris; F17.210 Nicotine dependence, cigarettes, uncomplicated; Z79.4 Long term (current) use of insulin; Z79.899 Other long term (current) drug therapy
CPT/HCPCS: 36415; 71046; 80053; 80307; 83880; 84484; 85025; 93005; 94760

== ENCOUNTER 2019-02-09 18:23 | Emergency (ER) | payer MEDICARE ==
[2019-02-09 19:06] LABS: #Lymphocytes 0.8 thou/uL (1.20-3.40); #Monocytes 1.2 thou/uL (0.11-0.59); #Neutrophils 17.2 thou/uL (1.40-6.50); %Basophils 0.2 % (0.0-1.0); %Lymphocytes 4.3 % (21.0-51.0); %Monocytes 6.3 % (0.0-10.0); %Neutrophils 89.2 % (42.0-75.0); Hemoglobin 10.2 g/dL (14.0-18.0); Mean Corpuscular HGB CONC 33.8 g/dL (32.0-36.0); Mean Corpuscular Hemoglobin 29.3 pg (27.0-31.0); Mean Corpuscular Volume 86.8 fL (78.0-98.0); Mean Platelet Volume 6.5 fL (7.4-10.4); Platelet Count 312 thou/uL (130-400); RBC Distribution Width 13.1 % (11.5-14.5); Red Blood Cell (RBC) Count 3.47 mill/uL (4.70-6.10); White Blood Cell (WBC) Count 19.3 thou/uL (4.8-10.8)
[2019-02-09 19:23] LABS: ALT (SGPT) 24 U/L (8-55); AST (SGOT) 10 U/L (5-34); Albumin 3.7 g/dL (3.4-4.8); Alkaline Phosphatase 119 U/L (40-150); Anion Gap 16 mmol/L (10-20); BUN (Urea Nitrogen) 29 mg/dL (8.4-25.7); Bilirubin, Total 0.5 mg/dL (0.2-1.2); Calc. Creatinine Clearance 0 mL/min (70-130); Calcium 9.3 mg/dL (7.8-10.44); Carbon Dioxide 21 mmol/L (23-31); Chloride 97 mmol/L (98-107); Estimated GFR-MDRD 40; Globulin 3.1 g/dL (2.4-3.5); Glucose 397 mg/dL (83-110); Potassium 4.2 mmol/L (3.5-5.1); Protein, Total 6.8 g/dL (5.8-8.1); Sodium 130 mmol/L (136-145)
[2019-02-09] MEDS ORDERED: Vancomycin HCl 500 MG VIAL ONE (19:23)
[2019-02-09] MEDS ORDERED: Cefepime 2 GM VIAL ONE (19:23)
[2019-02-09] MEDS ORDERED: Sodium Chloride 0.9% 1,000 ML ONE (19:23)
[2019-02-09] MEDS ORDERED: Sodium Chloride 0.9% 100 ML ONE ×2 (19:24)
[2019-02-09] MEDS ORDERED: Sodium Chloride 0.9% 250 ML 250 ML ONE (19:24)
--- NOTE | 2019-02-09 19:28 | RAD ---
CHEST TWO VIEWS: 02/09/19 HISTORY: Cough, fever, chest tightness. COMPARISON: 12/27/18. FINDINGS: Postop midline sternotomy. Heart size is within normal limits. Stable increased linear and interstiti al markings bilaterally. Stable biapical pleural thickening and left healed rib fractures. No conflue nt pneumonia, overt edema, pleural effusion or other acute process. IMPRESSION: Stable chronic changes. No acute process. Atherosclerosis of the aorta. POS: [facility]
[2019-02-09 19:30] LABS: Bilirubin Negative (Negative); Blood, Urine Moderate (Negative); Glucose, Urine (Dipstick) 500 mg/dL (Negative); Leukocyte Large (Negative); Nitrite Negative (Negative); Protein, Urine (Dipstick) 100 mg/dL (Neg-Trace); Specific Gravity, Urine 1.015 (1.005-1.030); Urobilinogen 0.2 mg/dL (0.2-1.0); pH, Urine 7.5 (5.0-9.0)
[2019-02-09 19:31] LABS: Clarity Cloudy (Clear)
[2019-02-09 19:41] LABS: CKMB 0.6 ng/mL (0-6.6)
[2019-02-09 19:41] LABS: Bacteria/HPF Rare-Few HPF (None Seen); Squamous Epithelial 0-3 HPF (0-3)
[2019-02-09] MEDS ORDERED: Aspirin 325 MG TAB ONE (20:49)
[2019-02-09] MEDS ORDERED: Acetaminophen 500 MG TAB ONE (22:11)
== END 2019-02-09 22:56 | disposition short-term general hospital (02) ==
LOC: MADERS 18:23
DX: A41.9 Sepsis, unspecified organism (principal); N17.9 Acute kidney failure, unspecified; R79.89 Other specified abnormal findings of blood chemistry; E87.70 Fluid overload, unspecified; E11.65 Type 2 diabetes mellitus with hyperglycemia; E87.1 Hypo-osmolality and hyponatremia; I10 Essential (primary) hypertension; I25.10 Atherosclerotic heart disease of native coronary artery without angina pectoris; F17.210 Nicotine dependence, cigarettes, uncomplicated; Z79.899 Other long term (current) drug therapy; Z79.4 Long term (current) use of insulin
CPT/HCPCS: 71046; 80053; 81003; 81015; 82553; 83605; 83880; 84484; 85025; 87040; 87077; 87086; 87186; 87804; 93005; 96365; 96366; 96367; J0692; J3370; J3490; J7050

== ENCOUNTER 2019-08-10 11:51 | Emergency (ER) | payer MEDICARE ==
[2019-08-10] MEDS ORDERED: Cyclobenzaprine 10 MG TAB ONE (12:22)
== END 2019-08-10 12:42 | disposition home or self-care (01) ==
LOC: MADERS 11:51
DX: M62.838 Other muscle spasm (principal); I11.0 Hypertensive heart disease with heart failure; I50.9 Heart failure, unspecified; E11.9 Type 2 diabetes mellitus without complications; I25.10 Atherosclerotic heart disease of native coronary artery without angina pectoris; F17.210 Nicotine dependence, cigarettes, uncomplicated; Z79.899 Other long term (current) drug therapy; Z79.84 Long term (current) use of oral hypoglycemic drugs
CPT/HCPCS: 99283

== ENCOUNTER 2019-08-12 23:31 | Emergency (ER) | payer MEDICARE ==
[2019-08-13] MEDS ORDERED: Acyclovir 200 mg Capsule ONE (00:54)
[2019-08-13] MEDS ORDERED: Morphine 4 MG/ML VIAL ONE (00:54)
[2019-08-13] MEDS ORDERED: Dexamethasone 4 MG TAB ONE (00:54)
== END 2019-08-13 01:10 | disposition home or self-care (01) ==
LOC: MADERS 23:31
DX: B02.9 Zoster without complications (principal); I11.0 Hypertensive heart disease with heart failure; I50.9 Heart failure, unspecified; E11.9 Type 2 diabetes mellitus without complications; I25.10 Atherosclerotic heart disease of native coronary artery without angina pectoris; F17.210 Nicotine dependence, cigarettes, uncomplicated; Z79.899 Other long term (current) drug therapy; Z79.84 Long term (current) use of oral hypoglycemic drugs
CPT/HCPCS: 96372; 99283; J2270; J8540

== ENCOUNTER 2020-09-02 20:16 | Emergency (ER) | payer MEDICARE ==
[2020-09-02 21:15] LABS: #Eosinphils 0.1 thou/uL (0.0-0.7); #Lymphocytes 0.9 thou/uL (1.20-3.40); #Monocytes 0.6 thou/uL (0.11-0.59); #Neutrophils 4.2 thou/uL (1.40-6.50); %Basophils 0.8 % (0.0-1.0); %Eosinophils 1.7 % (0.0-10.0); %Lymphocytes 15.6 % (21.0-51.0); %Monocytes 9.5 % (0.0-10.0); %Neutrophils 72.4 % (42.0-75.0); Hemoglobin 7.4 g/dL (14.0-18.0); Mean Corpuscular HGB CONC 31.2 g/dL (32.0-36.0); Mean Corpuscular Hemoglobin 31.7 pg (27.0-31.0); Mean Corpuscular Volume 101.8 fL (78.0-98.0); Mean Platelet Volume 7.4 fL (7.4-10.4); Platelet Count 213 thou/uL (130-400); RBC Distribution Width 14.3 % (11.5-14.5); Red Blood Cell (RBC) Count 2.34 mill/uL (4.70-6.10); White Blood Cell (WBC) Count 5.8 thou/uL (4.8-10.8)
--- NOTE | 2020-09-02 21:19 | RAD ---
XR Chest 1 View Portable HISTORY: Dyspnea COMPARISON: 02/09/2019 FINDINGS: Changes of median sternotomy are again seen. The heart size is normal. The aorta is tortuou s. Mild chronic parenchymal changes and old left-sided rib fractures are redemonstrated. The lungs are well expanded without focal areas of consolidation, pneumothorax or pleural effusions. IMPRESSION: No radiographic evidence of acute cardiopulmonary process.
[2020-09-02 21:39] LABS: ALT (SGPT) 19 U/L (8-55); AST (SGOT) 17 U/L (5-34); Albumin 3.8 g/dL (3.4-4.8); Alkaline Phosphatase 78 U/L (40-110); Anion Gap 14 mmol/L (10-20); BUN (Urea Nitrogen) 47 mg/dL (8.4-25.7); Bilirubin, Total 0.3 mg/dL (0.2-1.2); CK (CPK) 37 U/L (30-200); Calc. Creatinine Clearance 0 mL/min (70-130); Calcium 8.5 mg/dL (7.8-10.44); Carbon Dioxide 21 mmol/L (23-31); Chloride 110 mmol/L (98-107); Estimated GFR-MDRD 35; Globulin 1.6 g/dL (2.4-3.5); Glucose 217 mg/dL (83-110); Potassium 4.6 mmol/L (3.5-5.1); Protein, Total 5.4 g/dL (5.8-8.1); Sodium 140 mmol/L (136-145)
[2020-09-02 21:40] LABS: CKMB 1.3 ng/mL (0-6.6)
[2020-09-02 22:19] LABS: PTT 30.2 sec (22.9-36.1); Prothrombin Time 13.3 sec (12.0-14.7)
[2020-09-02 22:20] LABS: D-Dimer Test Less than 25.00 *mcg/mL (0.27-0.43)
== END 2020-09-03 00:28 | disposition short-term general hospital (02) ==
LOC: MADERS 20:16
DX: D64.9 Anemia, unspecified (principal); C85.10 Unspecified B-cell lymphoma, unspecified site; R77.8 Other specified abnormalities of plasma proteins; I11.0 Hypertensive heart disease with heart failure; I50.9 Heart failure, unspecified; E11.9 Type 2 diabetes mellitus without complications; I25.10 Atherosclerotic heart disease of native coronary artery without angina pectoris; F17.210 Nicotine dependence, cigarettes, uncomplicated; Z79.899 Other long term (current) drug therapy; Z79.82 Long term (current) use of aspirin; Z79.4 Long term (current) use of insulin
CPT/HCPCS: 71045; 80053; 82550; 82553; 83880; 84484; 85025; 85379; 85610; 85730; 93005

== ENCOUNTER 2020-11-15 10:57 | Outpatient (CLI) | payer MEDICARE ==
[2020-11-15 11:17] LABS: #Basophils 0.1 thou/uL (0.0-0.2); #Eosinphils 0.2 thou/uL (0.0-0.7); #Lymphocytes 0.5 thou/uL (1.20-3.40); #Monocytes 0.6 thou/uL (0.11-0.59); %Basophils 0.8 % (0.0-1.0); %Eosinophils 2.4 % (0.0-10.0); %Lymphocytes 6.5 % (21.0-51.0); %Monocytes 7.4 % (0.0-10.0); %Neutrophils 82.9 % (42.0-75.0); Hemoglobin 8.3 g/dL (14.0-18.0); Mean Corpuscular HGB CONC 30.9 g/dL (32.0-36.0); Mean Corpuscular Volume 93.9 fL (78.0-98.0); Mean Platelet Volume 7.6 fL (7.4-10.4); Platelet Count 263 thou/uL (130-400); RBC Distribution Width 17.8 % (11.5-14.5); Red Blood Cell (RBC) Count 2.86 mill/uL (4.70-6.10); White Blood Cell (WBC) Count 8.4 thou/uL (4.8-10.8)
[2020-11-15 11:40] LABS: ALT (SGPT) 15 U/L (8-55); AST (SGOT) 14 U/L (5-34); Albumin 3.7 g/dL (3.4-4.8); Alkaline Phosphatase 99 U/L (40-110); Anion Gap 16 mmol/L (10-20); BUN (Urea Nitrogen) 31 mg/dL (8.4-25.7); Bilirubin, Total 0.5 mg/dL (0.2-1.2); Calc. Creatinine Clearance 0 mL/min (70-130); Calcium 8.9 mg/dL (7.8-10.44); Carbon Dioxide 25 mmol/L (23-31); Cardiac Risk 3.1 (Less than 4.5); Chloride 103 mmol/L (98-107); Cholesterol 111 mg/dl (< 200 Desired); Globulin 2.3 g/dL (2.4-3.5); Glucose 122 mg/dL (83-110); HDL Cholesterol 36 mg/dL (>60 Neg Risk); LDL Cholesterol, Calculated 54 mg/dL; Sodium 140 mmol/L (136-145); Triglycerides 104 mg/dL (Less than 150)
== END 2020-11-15 10:58 | disposition home or self-care (01) ==
LOC: MADLAB 10:57
PROVIDERS: ATTEND Family Medicine
DX: E11.9 Type 2 diabetes mellitus without complications (principal); D64.9 Anemia, unspecified; I50.31 Acute diastolic (congestive) heart failure
CPT/HCPCS: 80053; 80061; 82728; 83036; 85025

== ENCOUNTER 2021-08-08 16:42 | Emergency (ER) | payer MEDICARE ==
[2021-08-08 17:35] LABS: #Basophils 0.1 thou/uL (0.0-0.2); #Eosinphils 0.1 thou/uL (0.0-0.7); #Monocytes 0.7 thou/uL (0.11-0.59); #Neutrophils 4.7 thou/uL (1.40-6.50); %Basophils 0.8 % (0.0-1.0); %Eosinophils 2.1 % (0.0-10.0); %Lymphocytes 14.7 % (21.0-51.0); %Neutrophils 71.3 % (42.0-75.0); Hemoglobin 9.7 g/dL (14.0-18.0); Mean Corpuscular HGB CONC 31.5 g/dL (32.0-36.0); Mean Corpuscular Hemoglobin 30.5 pg (27.0-31.0); Mean Corpuscular Volume 96.9 fL (78.0-98.0); Mean Platelet Volume 6.9 fL (7.4-10.4); Platelet Count 203 thou/uL (130-400); Red Blood Cell (RBC) Count 3.18 mill/uL (4.70-6.10); White Blood Cell (WBC) Count 6.5 thou/uL (4.8-10.8)
[2021-08-08 17:50] LABS: ALT (SGPT) 21 U/L (8-55); AST (SGOT) 14 U/L (5-34); Albumin 4.1 g/dL (3.4-4.8); Alkaline Phosphatase 100 U/L (40-110); Anion Gap 15 mmol/L (10-20); BUN (Urea Nitrogen) 38 mg/dL (8.4-25.7); Bilirubin, Total 0.4 mg/dL (0.2-1.2); Calc. Creatinine Clearance 0 mL/min (70-130); Calcium 9.2 mg/dL (7.8-10.44); Carbon Dioxide 23 mmol/L (23-31); Chloride 104 mmol/L (98-107); Globulin 2.7 g/dL (2.4-3.5); Glucose 163 mg/dL (83-110); Potassium 4.6 mmol/L (3.5-5.1); Protein, Total 6.8 g/dL (5.8-8.1); Sodium 137 mmol/L (136-145)
[2021-08-08] MEDS ORDERED: Aspirin 325 MG TAB ONE (18:01)
[2021-08-08 18:07] LABS: CKMB 2.1 ng/mL (0-6.6)
== END 2021-08-08 21:24 | disposition left against medical advice (07) ==
LOC: MADERS 16:42
DX: R07.9 Chest pain, unspecified (principal); R06.02 Shortness of breath; I25.10 Atherosclerotic heart disease of native coronary artery without angina pectoris; I11.0 Hypertensive heart disease with heart failure; I50.9 Heart failure, unspecified; E11.9 Type 2 diabetes mellitus without complications; F17.210 Nicotine dependence, cigarettes, uncomplicated; Z85.72 Personal history of non-Hodgkin lymphomas; Z79.82 Long term (current) use of aspirin; Z79.899 Other long term (current) drug therapy; Z79.4 Long term (current) use of insulin
CPT/HCPCS: 36415; 71045; 80053; 82553; 83880; 84484; 85025; 93005

== ENCOUNTER 2022-02-27 08:14 | Emergency (ER) | payer MEDICARE ==
[2022-02-27] MEDS ORDERED: Orphenadrine Citrate 60 MG/2 ML VIAL ONE (08:59)
== END 2022-02-27 09:18 | disposition home or self-care (01) ==
LOC: MADERS 08:14
DX: M25.511 Pain in right shoulder (principal); M79.621 Pain in right upper arm; I11.0 Hypertensive heart disease with heart failure; I50.9 Heart failure, unspecified; E11.9 Type 2 diabetes mellitus without complications; F17.210 Nicotine dependence, cigarettes, uncomplicated
CPT/HCPCS: 96372; 99283; J2360

== ENCOUNTER 2022-05-27 13:34 | Emergency (ER) | payer MEDICARE ==
[2022-05-27 13:59] LABS: #Basophils 0.1 thou/uL (0.0-0.2); #Lymphocytes 1.1 thou/uL (1.20-3.40); #Monocytes 0.6 thou/uL (0.11-0.59); #Neutrophils 7.7 thou/uL (1.40-6.50); %Basophils 0.7 % (0.0-1.0); %Eosinophils 0.5 % (0.0-10.0); %Monocytes 6.6 % (0.0-10.0); %Neutrophils 81.3 % (42.0-75.0); Hemoglobin 10.5 g/dL (14.0-18.0); Mean Corpuscular HGB CONC 31.9 g/dL (32.0-36.0); Mean Corpuscular Volume 97.1 fL (78.0-98.0); Mean Platelet Volume 10.8 fL (7.4-10.4); Platelet Count 167 thou/uL (130-400); White Blood Cell (WBC) Count 9.5 thou/uL (4.8-10.8)
[2022-05-27] MEDS ORDERED: Nitroglycerin 0.4 MG TAB 1 EACH ONE (14:05)
[2022-05-27 14:16] LABS: ALT (SGPT) 28 U/L (8-55); AST (SGOT) 19 U/L (5-34); Albumin 4.3 g/dL (3.4-4.8); Alkaline Phosphatase 103 U/L (40-110); Anion Gap 14 mmol/L (10-20); BUN (Urea Nitrogen) 24 mg/dL (8.4-25.7); Bilirubin, Total 0.5 mg/dL (0.2-1.2); Calc. Creatinine Clearance 0 mL/min (70-130); Calcium 8.9 mg/dL (7.8-10.44); Carbon Dioxide 23 mmol/L (23-31); Chloride 104 mmol/L (98-107); Estimated GFR 54; Globulin 2.2 g/dL (2.4-3.5); Glucose 142 mg/dL (83-110); Lipase 5 U/L (8-78); Potassium 4.4 mmol/L (3.5-5.1); Protein, Total 6.5 g/dL (5.8-8.1); Sodium 137 mmol/L (136-145)
[2022-05-27 14:30] LABS: CKMB 2.4 ng/mL (0-6.6)
[2022-05-27] MEDS ORDERED: Nitroglycerin 2% Ointment 1 INCH/1 GM Packet ONE (15:04)
== END 2022-05-27 17:17 | disposition left against medical advice (07) ==
LOC: MADERS 13:34
DX: R07.2 Precordial pain (principal); R77.8 Other specified abnormalities of plasma proteins; I44.7 Left bundle-branch block, unspecified; I44.0 Atrioventricular block, first degree; I44.4 Left anterior fascicular block; I11.0 Hypertensive heart disease with heart failure; I50.9 Heart failure, unspecified; E11.9 Type 2 diabetes mellitus without complications; I25.10 Atherosclerotic heart disease of native coronary artery without angina pectoris; F17.210 Nicotine dependence, cigarettes, uncomplicated; Z79.82 Long term (current) use of aspirin; Z79.899 Other long term (current) drug therapy
CPT/HCPCS: 71045; 80053; 82553; 83605; 83690; 84484; 85025; 93005; 94760

== ENCOUNTER 2022-07-18 10:52 | Emergency (ER) | payer MEDICARE ==
[2022-07-18] MEDS ORDERED: Cyclobenzaprine 10 MG TAB ONE (11:38)
[2022-07-18] MEDS ORDERED: HYDROcodone/Acetaminophen 5/325 mg Tablet ONE (11:38)
== END 2022-07-18 13:15 | disposition home or self-care (01) ==
LOC: MADERS 10:52
DX: S29.012A Strain of muscle and tendon of back wall of thorax, initial encounter (principal); S23.3XXA Sprain of ligaments of thoracic spine, initial encounter; S13.4XXA Sprain of ligaments of cervical spine, initial encounter; E11.9 Type 2 diabetes mellitus without complications; I11.0 Hypertensive heart disease with heart failure; I50.9 Heart failure, unspecified; I25.10 Atherosclerotic heart disease of native coronary artery without angina pectoris; F17.210 Nicotine dependence, cigarettes, uncomplicated; Z79.899 Other long term (current) drug therapy; Z79.82 Long term (current) use of aspirin; V49.59XA Passenger injured in collision with other motor vehicles in traffic accident, initial encounter
CPT/HCPCS: 72072

== ENCOUNTER 2022-08-24 15:29 | Emergency (ER) | payer MEDICARE | END 2022-08-24 17:40 | disposition home or self-care (01) | LOC: MADERS 15:29 | DX: S39.011A Strain of muscle, fascia and tendon of abdomen, initial encounter (principal); E11.9 Type 2 diabetes mellitus without complications; I11.0 Hypertensive heart disease with heart failure; I50.9 Heart failure, unspecified; F17.210 Nicotine dependence, cigarettes, uncomplicated; X58.XXXA Exposure to other specified factors, initial encounter; Z79.82 Long term (current) use of aspirin; Z79.899 Other long term (current) drug therapy ==

== ENCOUNTER 2024-05-27 11:50 | Emergency (ER) | payer MEDICARE ==
[2024-05-27 12:17] LABS: #Basophils 0.1 thou/uL (0.0-0.2); #Lymphocytes 0.8 thou/uL (1.20-3.40); #Monocytes 0.9 thou/uL (0.11-0.59); #Neutrophils 13.9 thou/uL (1.40-6.50); %Basophils 0.4 % (0.0-1.0); %Eosinophils 0.3 % (0.0-10.0); %Monocytes 5.7 % (0.0-10.0); %Neutrophils 88.6 % (42.0-75.0); Hematocrit 35.1 % (42.0-52.0); Hemoglobin 11.3 g/dL (14.0-18.0); Mean Corpuscular HGB CONC 32.1 g/dL (32.0-36.0); Mean Corpuscular Hemoglobin 29.9 pg (27.0-31.0); Mean Corpuscular Volume 93.3 fl (78.0-98.0); Mean Platelet Volume 7.4 fL (7.4-10.4); Platelet Count 194 10x3/uL (130-400); RBC Distribution Width 13.5 % (11.5-14.5); Red Blood Cell (RBC) Count 3.76 mill/uL (4.70-6.10); White Blood Cell (WBC) Count 15.7 10x3/uL (4.8-10.8)
[2024-05-27 12:34] LABS: ALT (SGPT) 27 U/L (8-55); AST (SGOT) 17 U/L (5-34); Albumin 3.8 g/dL (3.4-4.8); Alkaline Phosphatase 97 U/L (40-110); Anion Gap 15 mmol/L (10-20); BUN (Urea Nitrogen) 29 mg/dL (8.4-25.7); Bilirubin, Total 0.3 mg/dL (0.2-1.2); Calc. Creatinine Clearance 0 mL/min (70-130); Calcium 8.7 mg/dL (7.8-10.44); Carbon Dioxide 21 mmol/L (23-31); Chloride 104 mmol/L (98-107); Estimated GFR 46; Globulin 2.7 g/dL (2.4-3.5); Glucose 136 mg/dL (83-110); Lipase 11 U/L (8-78); Potassium 3.9 mmol/L (3.5-5.1); Protein, Total 6.5 g/dL (5.8-8.1); Sodium 136 mmol/L (136-145)
== END 2024-05-27 14:15 | disposition home or self-care (01) ==
LOC: MADERS 11:50
DX: E11.649 Type 2 diabetes mellitus with hypoglycemia without coma (principal); I11.0 Hypertensive heart disease with heart failure; I50.9 Heart failure, unspecified; F17.210 Nicotine dependence, cigarettes, uncomplicated
CPT/HCPCS: 36416; 80053; 83690; 85025; 93005

== ENCOUNTER 2024-11-25 16:38 | Emergency (ER) | payer MEDICARE, SELFPAY ==
[2024-11-25 17:48] LABS: #Eosinophils 0.1 thou/uL (0.0-0.7); #Monocytes 0.7 thou/uL (0.11-0.59); #Neutrophils 6.5 thou/uL (1.40-6.50); %Basophils 0.5 % (0.0-1.0); %Eosinophils 1.5 % (0.0-10.0); %Lymphocytes 11.5 % (21.0-51.0); %Monocytes 8.8 % (0.0-10.0); %Neutrophils 77.7 % (42.0-75.0); Hematocrit 34.1 % (42.0-52.0); Hemoglobin 11.1 g/dL (14.0-18.0); Mean Corpuscular HGB CONC 32.6 g/dL (32.0-36.0); Mean Corpuscular Hemoglobin 29.9 pg (27.0-31.0); Mean Corpuscular Volume 91.8 fl (78.0-98.0); Mean Platelet Volume 9.5 fL (7.4-10.4); Platelet Count 182 10x3/uL (130-400); Prothrombin Time 12.9 sec (12.0-14.7); Red Blood Cell (RBC) Count 3.71 mill/uL (4.70-6.10); White Blood Cell (WBC) Count 8.3 10x3/uL (4.8-10.8)
[2024-11-25 17:49] LABS: PTT 27.3 sec (22.9-36.1)
[2024-11-25 17:58] LABS: ALT (SGPT) 30 U/L (Less than 45); AST (SGOT) 21 U/L (11-34); Albumin 3.8 g/dL (3.1-4.5); Alkaline Phosphatase 100 U/L (40-110); Anion Gap 15 mmol/L (10-20); BUN (Urea Nitrogen) 30 mg/dL (8.4-25.7); Bilirubin, Total 0.3 mg/dL (0.3-1.2); Calc. Creatinine Clearance 0 mL/min (70-130); Calcium 8.5 mg/dL (7.8-10.44); Carbon Dioxide 19 mmol/L (23-31); Chloride 105 mmol/L (98-107); Estimated GFR 47; Globulin 2.7 g/dL (2.4-3.5); Glucose 339 mg/dL (83-110); Lipase 10 U/L (8-78); Potassium 4.5 mmol/L (3.5-5.1); Protein, Total 6.5 g/dL (5.8-8.1); Sodium 134 mmol/L (136-145)
[2024-11-25 17:59] LABS: Troponin I 0.046 ng/mL (< 0.028)
[2024-11-25] MEDS ORDERED: Ondansetron PF 4 MG/2 ML Vial ONE (18:17)
[2024-11-25] MEDS ORDERED: Morphine 4 MG/ML VIAL ONE (18:18)
[2024-11-25 18:42] LABS: Bilirubin Negative (Negative); Blood, Urine Negative (Negative); Clarity Clear (Clear); Glucose, Urine (Dipstick) >=1000 mg/dL (Negative); Ketone, Urine Negative (Negative); Leukocyte Negative (Negative); Nitrite Negative (Negative); Protein, Urine (Dipstick) Negative (Neg-Trace); Urobilinogen 0.2 mg/dL (Less than 2); pH, Urine 5.5 (5.0-9.0)
[2024-11-25 18:43] LABS: Bacteria/HPF Rare-Few HPF (None Seen); CAUTI Indications for Culture Pelvic or flank pain; RBC/HPF 0-3 HPF (0-3); Squamous Epithelial 0-3 HPF (0-3); WBC/HPF 0-3 HPF (0-3)
[2024-11-25 18:44] LABS: Urine Culture Reflex No No
[2024-11-25 19:35] LABS: Base Excess-Venous -2.1 mmol/L (-2.0 to 3.0); Bicarbonate (HCO3v) 23.9 mmol/L (22.0-28.0); CO2 Tension (PvCO2) 44.9 mmHg (42.0-51.0); Calcium, Ionized 1.21 mmol/L (1.15-1.33); Chloride 104 mmol/L (98-107); Potassium 4.5 mmol/L (3.5-5.1); Sodium 135 mmol/L (138-145); T. Carbon Dioxide 25.3 mmol/L (22.0-28.0); vO2 Saturation-calc 86.2 % (60.0-85.0)
== END 2024-11-25 20:08 | disposition home or self-care (01) ==
LOC: MADERS 16:38
DX: S30.1XXA Contusion of abdominal wall, initial encounter (principal); E86.0 Dehydration; N28.89 Other specified disorders of kidney and ureter; R79.89 Other specified abnormal findings of blood chemistry; R94.31 Abnormal electrocardiogram [ECG] [EKG]; E11.9 Type 2 diabetes mellitus without complications; I25.10 Atherosclerotic heart disease of native coronary artery without angina pectoris; I11.0 Hypertensive heart disease with heart failure; I50.9 Heart failure, unspecified; F17.210 Nicotine dependence, cigarettes, uncomplicated; Z79.4 Long term (current) use of insulin; Z79.899 Other long term (current) drug therapy; W10.8XXA Fall (on) (from) other stairs and steps, initial encounter; Y92.008 Other place in unspecified non-institutional (private) residence as the place of occurrence of the external cause
CPT/HCPCS: 36415; 70450; 71260; 72125; 74177; 80053; 81001; 82330; 82803; 83605; 83690; 83880; 84484; 85025; 85610; 85730; 93005; 96374; 96375; J2270; J2405

== ENCOUNTER 2024-12-03 15:36 | Emergency (ER) | payer OTHER ==
[2024-12-03] MEDS ORDERED: Ondansetron PF 4 MG/2 ML Vial ONE (15:52)
[2024-12-03] MEDS ORDERED: Morphine 4 MG/ML VIAL ONE ×3 (15:52→20:28)
[2024-12-03 16:12] LABS: Hematocrit 31.6 % (42.0-52.0); Hemoglobin 10.8 g/dL (14.0-18.0); Mean Corpuscular HGB CONC 34.1 g/dL (32.0-36.0); Mean Corpuscular Hemoglobin 30.4 pg (27.0-31.0); Mean Corpuscular Volume 89.1 fl (78.0-98.0); Mean Platelet Volume 8.4 fL (7.4-10.4); Platelet Count 222 10x3/uL (130-400); Prothrombin Time 12.9 sec (12.0-14.7); RBC Distribution Width 13.5 % (11.5-14.5); Red Blood Cell (RBC) Count 3.54 mill/uL (4.70-6.10); White Blood Cell (WBC) Count 15.2 10x3/uL (4.8-10.8)
[2024-12-03 16:13] LABS: PTT 28.3 sec (22.9-36.1)
[2024-12-03 16:19] LABS: Band 2 % (5-11); Eosinophils 2 % (0-10); Lymphocytes 1 % (21-51); MDiff Complete? YES; Manual Diff?? YES; Monocytes 1 % (0-10); Neutrophil 89 % (42-75); Reactive Lymphocytes 5 % (0-10)
[2024-12-03 16:22] LABS: Platelet Adequacy Comment Appears Adequate
[2024-12-03 16:24] LABS: ALT (SGPT) 38 U/L (Less than 45); AST (SGOT) 27 U/L (11-34); Albumin 3.9 g/dL (3.1-4.5); Alkaline Phosphatase 102 U/L (40-110); Anion Gap 16 mmol/L (10-20); BUN (Urea Nitrogen) 22 mg/dL (8.4-25.7); Bilirubin, Total 0.4 mg/dL (0.3-1.2); Calc. Creatinine Clearance 0 mL/min (70-130); Calcium 8.5 mg/dL (7.8-10.44); Carbon Dioxide 17 mmol/L (23-31); Chloride 103 mmol/L (98-107); Estimated GFR 50; Globulin 2.8 g/dL (2.4-3.5); Glucose 310 mg/dL (83-110); Lipase 10 U/L (8-78); Potassium 4.8 mmol/L (3.5-5.1); Protein, Total 6.7 g/dL (5.8-8.1); Sodium 131 mmol/L (136-145)
[2024-12-03 17:04] LABS: Bilirubin Small (Negative); Blood, Urine Large (Negative); Glucose, Urine (Dipstick) 500 mg/dL (Negative); Ketone, Urine Trace mg/dL (Negative); Leukocyte Negative (Negative); Nitrite Positive (Negative); Protein, Urine (Dipstick) > or equal to 300 mg/dL (Neg-Trace); Specific Gravity, Urine 1.015 (1.005-1.030)
[2024-12-03 17:06] LABS: Clarity Cloudy (Clear)
[2024-12-03 17:15] LABS: CAUTI Indications for Culture Acute Hematuria; RBC/HPF Greater than 50 HPF (0-3); WBC/HPF Greater Than 50 HPF (0-3)
[2024-12-03 17:16] LABS: Bacteria/HPF 3+ HPF (None Seen); Squamous Epithelial 0-3 HPF (0-3); Urine Culture Reflex Yes Yes
[2024-12-03] MEDS ORDERED: Sodium Chloride 0.9% 100 ML ONE (17:28)
[2024-12-03] MEDS ORDERED: Sodium Chloride 0.9% 1,000 ML ONE (17:28)
[2024-12-03] MEDS ORDERED: cefTRIAXone (ROCEPHIN) 1 GM VIAL ONE (17:28)
[2024-12-03] MEDS ORDERED: Acetaminophen 500 MG TAB ONE (22:38)
== END 2024-12-03 22:48 | disposition short-term general hospital (02) ==
LOC: MADERS 15:36
DX: N12 Tubulo-interstitial nephritis, not specified as acute or chronic (principal); I11.0 Hypertensive heart disease with heart failure; I50.9 Heart failure, unspecified; E11.9 Type 2 diabetes mellitus without complications; I25.10 Atherosclerotic heart disease of native coronary artery without angina pectoris; F17.210 Nicotine dependence, cigarettes, uncomplicated; Z55.6 Problems related to health literacy; Z79.4 Long term (current) use of insulin; Z79.899 Other long term (current) drug therapy
CPT/HCPCS: 36415; 74177; 80053; 81001; 83605; 83690; 85025; 85610; 85730; 87040; 87077; 87086; 87149; 87186; 96361; 96365; 96375; 96376; J0696; J2270; J2405; J7030

== ENCOUNTER 2025-01-06 12:31 | Outpatient (CLI) | payer OTHER | END 2025-01-06 12:32 | disposition home or self-care (01) | LOC: MADRAD 12:31 | PROVIDERS: ATTEND Family Medicine | DX: M54.42 Lumbago with sciatica, left side (principal); M47.816 Spondylosis without myelopathy or radiculopathy, lumbar region | CPT/HCPCS: 72110 ==

== ENCOUNTER 2025-08-12 09:55 | Emergency (ER) | payer OTHER ==
[2025-08-12] MEDS ORDERED: Acetaminophen 500 MG TAB ONE (10:31)
[2025-08-12 10:58] LABS: Hematocrit 33.9 % (42.0-52.0); Hemoglobin 11.3 g/dL (14.0-18.0); Mean Corpuscular Hemoglobin 30.4 pg (27.0-31.0); Mean Corpuscular Volume 91.2 fl (78.0-98.0); Platelet Count 173 10x3/uL (130-400); Red Blood Cell (RBC) Count 3.72 mill/uL (4.70-6.10); White Blood Cell (WBC) Count 17.4 10x3/uL (4.8-10.8)
[2025-08-12 10:59] LABS: MDiff Complete? YES; Platelet Adequacy Comment Appears Adequate
[2025-08-12 11:01] LABS: ALT (SGPT) 7 U/L (Less than 45); AST (SGOT) 16 U/L (11-34); Albumin 3.7 g/dL (3.1-4.5); Alkaline Phosphatase 81 U/L (40-110); Anion Gap 18 mmol/L (10-20); BUN (Urea Nitrogen) 52 mg/dL (8.4-25.7); Bilirubin, Total 1.0 mg/dL (0.3-1.2); Calc. Creatinine Clearance 0 mL/min (70-130); Calcium 8.7 mg/dL (7.8-10.44); Carbon Dioxide 18 mmol/L (23-31); Chloride 102 mmol/L (98-107); Globulin 3.2 g/dL (2.4-3.5); Glucose 316 mg/dL (83-110); Potassium 4.8 mmol/L (3.5-5.1); Sodium 133 mmol/L (136-145)
[2025-08-12] MEDS ORDERED: cefTRIAXone (ROCEPHIN) 1 GM VIAL ONE (11:07)
[2025-08-12 11:18] LABS: Lipase Less than 4 U/L (8-78)
[2025-08-12 13:31] LABS: Glucose, Urine (Dipstick) 100 mg/dL (Negative); Leukocyte Large (Negative); Protein, Urine (Dipstick) > or equal to 300 mg/dL (Neg-Trace); Specific Gravity, Urine 1.020 (1.005-1.030)
[2025-08-12 13:35] LABS: Bacteria/HPF 1+ HPF (None Seen); CAUTI Indications for Culture Acute Hematuria; WBC/HPF Greater than 50 HPF (0-3)
[2025-08-12 13:36] LABS: Urine Culture Reflex Yes Yes
== END 2025-08-12 16:01 | disposition short-term general hospital (02) ==
LOC: MADERS 09:55
DX: N39.0 Urinary tract infection, site not specified (principal); N17.9 Acute kidney failure, unspecified; I13.0 Hypertensive heart and chronic kidney disease with heart failure and stage 1 through stage 4 chronic kidney disease, or unspecified chronic kidney disease; E11.22 Type 2 diabetes mellitus with diabetic chronic kidney disease; N18.9 Chronic kidney disease, unspecified; I50.9 Heart failure, unspecified; R29.700 NIHSS score 0; F17.210 Nicotine dependence, cigarettes, uncomplicated; I25.10 Atherosclerotic heart disease of native coronary artery without angina pectoris; Z95.1 Presence of aortocoronary bypass graft
CPT/HCPCS: 71045; 74176; 80053; 81001; 83605; 83690; 85025; 85379; 87040; 87077; 87086; 87149 ×2; 87186; 93005; 96361; 96374; 99285; J0696; J7030